=== PATIENT | female | born 1960 | race Caucasian/White ===

== ENCOUNTER → 2020-08-04 08:36 | Outpatient (BNVA) | payer OTHER, SELFPAY | PROVIDERS: PCP Internal Medicine; Visit Provider Physician Assistant | DX: Z76.89 Persons encountering health services in other specified circumstances (principal) ==

== ENCOUNTER 2020-08-20 10:52 | Outpatient (REF) | payer OTHER, SELFPAY ==
--- NOTE | 2020-08-20 11:15 | XR_ITS ---
EXAMINATION: AP BILATERAL KNEE. LEFT KNEE 2 VIEWS. CLINICAL INFORMATION: Unilateral primary osteoarthritis, left knee. COMPARISON: None TECHNIQUE: AP pelvis. Left knee 2 views. FINDINGS: AP pelvis: There is loss of medial and lateral compartment joint space with periarticular spurring left knee. There is a total right knee prosthesis in place in satisfactory alignment. Left knee: There is complete loss of tricompartment joint space left knee with periarticular spurring and mild suprapatellar joint effusion. No loose body seen. No bony erosive changes. The soft tissues are normal. XR/XR knee standing BI IMPRESSION: Degenerative arthritic changes left knee with periapical spurring and moderate suprapatellar joint effusion. No loose body seen. No visible acute fracture or dislocation.
--- NOTE | 2020-08-20 11:15 | XR_ITS ---
EXAMINATION: AP BILATERAL KNEE. LEFT KNEE 2 VIEWS. CLINICAL INFORMATION: Unilateral primary osteoarthritis, left knee. COMPARISON: None TECHNIQUE: AP pelvis. Left knee 2 views. FINDINGS: AP pelvis: There is loss of medial and lateral compartment joint space with periarticular spurring left knee. There is a total right knee prosthesis in place in satisfactory alignment. Left knee: There is complete loss of tricompartment joint space left knee with periarticular spurring and mild suprapatellar joint effusion. No loose body seen. No bony erosive changes. The soft tissues are normal. XR/XR knee LT 2V IMPRESSION: Degenerative arthritic changes left knee with periapical spurring and moderate suprapatellar joint effusion. No loose body seen. No visible acute fracture or dislocation.
== END 2020-08-20 10:53 | disposition home or self-care (01) ==
LOC: HO.XRAY 10:52
PROVIDERS: PCP Internal Medicine; Referring Provider Internal Medicine; Visit Provider Physician Assistant
DX: M17.12 Unilateral primary osteoarthritis, left knee (principal)
CPT/HCPCS: 73560; 73565

== ENCOUNTER 2020-08-24 11:50 | Inpatient (IN) | payer OTHER, SELFPAY ==
[2020-08-11 12:34] VITALS: BP 130/84; PULSE 83; RESP 16; O2SAT 98; BMI 39.9
--- NOTE | 2020-08-11 12:58 | P.CONAN_ITS ---
Documented by User: Mindy Khouryney 08/23/20 08:58 HPI - Anesthesia Eval Consult details Narrative: 60 yo F for Left TKA s/p R TKA 07/2019 with spinal/block, no issues chronic methotrexate/humira for psoriatic arthritis PCP cleared ON LICENSE OF [facility] Past Medical History Medical History Anxiety Hearing difficulty of right ear Hx of meningitis Hyperlipidemia Hypertension Hypothyroidism Osteoarthritis Psoriatic arthritis Sleep apnea Family History Family history of problems with anesthesia: No Surgical History Surgical History History of carpal tunnel repair History of gynecologic surgery History of total right knee replacement (TKR) History of wisdom tooth extraction Hx of colonoscopy Hx of tonsillectomy History of Problems with Anesthesia: No Social History Social History Are you a primary manager of care to a significant other at home: No Do you presently have visiting nurse or other home services: No Smoking Status: Never smoker Second Hand Smoke Exposure: No Use of substances other than those prescribed or required for medical reasons: No Have you been hit, kicked, punched, or otherwise hurt by someone within the past year? If so, by whom?: No Spiritual Healthcare Practices: none Orthodox Healthcare Practices: none Cultural Healthcare Practices: none Advance Directives: No Advance Directives Information Provided: Yes Recently lost weight without trying: No Meds Allergies Allergy/AdvReac Type Severity Reaction Status Date / Time sulfamethoxazole Allergy Unknown DIARRHEA Verified 08/20/20 11:06 [From BACTRIM] trimethoprim [From BACTRIM] Allergy Unknown DIARRHEA Verified 08/20/20 11:06 environmental/hay fever Allergy Unknown itching Uncoded 08/04/20 12:24 Home Medications Medication Instructions Recorded Confirmed Type adalimumab [Humira Pen] 1 syringe SUBCUT Q2W 08/10/20 08/10/20 History diclofenac sodium 75 mg PO DAILY PRN 08/10/20 08/10/20 History folic acid 1 tab PO DAILY 08/10/20 08/10/20 History hydrochlorothiazide 1 tab PO DAILY 08/10/20 08/10/20 History lovastatin 1 tab PO BEDTIME 08/10/20 08/10/20 History methotrexate sodium [Methotrexate 15 mg PO QWEEK 08/10/20 08/10/20 History (Anti-Rheumatic)] multivitamin 1 tab PO DAILY 08/10/20 08/10/20 History levothyroxine 1 tab PO DAILY 08/11/20 08/11/20 History biotin 1 mg capsule 1 mg PO DAILY 08/20/20 History Exam Exam Date and Time: August 11, 2020 1258 Height,Weight and Vital Signs: Height 5 ft 4 in Weight 105.687 kg Last Vital Signs Pulse 83 08/11/20 12:34 Resp 16 08/11/20 12:34 BP 130/84 08/11/20 12:34 Pulse Ox 98 08/11/20 12:34 Pertinent Lab Results Pertinent Lab Results: CBC,LYTES,BUN,CREAT all WNL from outside provider Lab Results 08/11/20 08/20/20 Range/Units 13:15 12:20 Nasal Screen MRSA (PCR) NEGATIVE (Negative) Nasal S. aureus Screen NEGATIVE (Negative) Nasal MRSA/S.aureus Interp SEE NOTE Blood Type A Positive Antibody Screen NEGATIVE EKG 08/10/20: NSR @ 94, ?LAE, no change from 2019 Airway Mallampati Class: II TM Dist: >3cm Neck ROM: Full Loose/Missing/Broken Teeth: No (Crowns throught. None loose or broken.) Heart: RRR Lungs: CTAB Assessment and Plan Assessment Anesthesia Assessment: Anesthesia Plan Discussed and PAT Visit Documented by User: Leonides Burton MD 08/24/20 10:33 ON LICENSE OF [facility] Past Medical History Medical History Anxiety Hearing difficulty of right ear Hx of meningitis Hyperlipidemia Hypertension Hypothyroidism Osteoarthritis Psoriatic arthritis Sleep apnea Surgical History Surgical History History of carpal tunnel repair History of gynecologic surgery History of total right knee replacement (TKR) History of wisdom tooth extraction Hx of colonoscopy Hx of tonsillectomy Social History Social History Are you a primary manager of care to a significant other at home: No Do you presently have visiting nurse or other home services: No Smoking Status: Never smoker Second Hand Smoke Exposure: No Use of substances other than those prescribed or required for medical reasons: No Have you been hit, kicked, punched, or otherwise hurt by someone within the past year? If so, by whom?: No Spiritual Healthcare Practices: none Orthodox Healthcare Practices: none Cultural Healthcare Practices: none Advance Directives: No Advance Directives Information Provided: Yes Recently lost weight without trying: No Meds Allergies Allergy/AdvReac Type Severity Reaction Status Date / Time sulfamethoxazole Allergy Unknown DIARRHEA Verified 08/20/20 11:06 [From BACTRIM] trimethoprim [From BACTRIM] Allergy Unknown DIARRHEA Verified 08/20/20 11:06 environmental/hay fever Allergy Unknown itching Uncoded 08/04/20 12:24 Home Medications Medication Instructions Recorded Confirmed Type adalimumab [Humira Pen] 1 syringe SUBCUT Q2W 08/10/20 08/10/20 History diclofenac sodium 75 mg PO DAILY PRN 08/10/20 08/10/20 History folic acid 1 tab PO DAILY 08/10/20 08/10/20 History hydrochlorothiazide 1 tab PO DAILY 08/10/20 08/10/20 History lovastatin 1 tab PO BEDTIME 08/10/20 08/10/20 History methotrexate sodium [Methotrexate 15 mg PO QWEEK 08/10/20 08/10/20 History (Anti-Rheumatic)] multivitamin 1 tab PO DAILY 08/10/20 08/10/20 History levothyroxine 1 tab PO DAILY 08/11/20 08/11/20 History biotin 1 mg capsule 1 mg PO DAILY 08/20/20 History Assessment and Plan Assessment Anesthesia Assessment: Anesthesia Plan Discussed, PAT Visit and Chart Reviewed Final Anesthetic Review NPO: Yes ASA Class: III Final Preanesthetic Review: No Changes in Pt Med Stat, Meds/Allgs Chart Reviewed, Consent Obtained/Reviewed and Anes Risks/Benef Reviewed Patient Risk: Intermediate Procedure Risk: Intermediate Anesthetic Plan Anesthetic Plan: MAC:, Spinal and Regional Block Disposition: Standard PACU
[2020-08-11 15:44] LABS: MRSA Nasal PCR NEGATIVE (Negative); SA Nasal PCR NEGATIVE (Negative)
[2020-08-24] VITALS (15 sets, daily range): BP systolic 96–158; BP diastolic 59–89; PULSE 18–108; RESP 12–19; TEMP 36.3–37.1; O2SAT 94–99
[2020-08-24] MEDS: Gabapentin 600 MG TABLET PO (08:12)
[2020-08-24] MEDS: ceFAZolin Sodium/Dextrose,Iso 2 GM/50 ML PIGGYBACK IV ×2 (08:13→14:25)
[2020-08-24] MEDS: Lactated Ringers 1,000 ML 100 ML IVCONT (08:39)
[2020-08-24 08:46] LABS: SARS COV2 PCR INHOUSE NEGATIVE (Negative)
--- NOTE | 2020-08-24 09:30 | MHC.SHP ---
Pre-Procedural Eval Section A The patient is an INPATIENT: No Changes since office visit: Yes Patient answered all questions; No Cold of Flu in the past 2 weeks, No New Medical Problems and No Changes in Medication The History & Physical has been completed within 30 days and I have reviewed it.: Yes Section B Chief Complaint: Left Knee Osteoarthritis Allergies: Allergies Allergy/AdvReac Type Severity Reaction Status Date / Time sulfamethoxazole Allergy Unknown DIARRHEA Verified 08/20/20 11:06 [From BACTRIM] trimethoprim [From BACTRIM] Allergy Unknown DIARRHEA Verified 08/20/20 11:06 environmental/hay fever Allergy Unknown itching Uncoded 08/04/20 12:24 Plan Patient has been examined and remains a candidate for the planned procedure
--- NOTE | 2020-08-24 11:24 | PM.OP ---
Brief Operative Note Date of procedure: 08/24/20 Pre-op diagnosis: left knee OA Post-op diagnosis: same Procedure: LEFT TKA Implants: CAS TRIATHALON 12/29/10 Surgeon: Karlos Boyce MD Anesthesia: regional and spinal Senior Sales Assistant: Farshad Dumont Estimated blood loss (mL): 150 IV fluids (mL): 800 Pathology: other Condition: stable Disposition: PACU
--- NOTE | 2020-08-24 12:30 | XR_ITS ---
EXAMINATION: XR KNEE, LEFT CLINICAL INFORMATION: Status post left TKA. COMPARISON: None TECHNIQUE: Two views of the left knee. FINDINGS: There is total left knee arthroplasty with prosthetic components in satisfactory alignment. Immediate postop changes are noted with surgical pushpa along this anterior skin incision and gas and fluid within the joint space. XR/XR knee LT 2V IMPRESSION: Status post total left knee arthroplasty with prosthetic components in satisfactory alignment and immediate postop changes noted.
[2020-08-24] MEDS: Dextrose 5 % and 0.9 % NaCl 1,000 ML 100 ML IVCONT (14:17)
[2020-08-24] MEDS: oxyCODONE HCl Immed Release 5 MG TABLET PO ×2 (14:25→19:09)
--- NOTE | 2020-08-24 16:21 | PM.IMCN ---
History of Present Illness Data of Consult Primary Care Provider: Pasha Lopes MD [facility] Medical History Anxiety Hearing difficulty of right ear Hx of meningitis Hyperlipidemia Hypertension Hypothyroidism Osteoarthritis Psoriatic arthritis Sleep apnea Surgical History History of carpal tunnel repair History of gynecologic surgery History of total right knee replacement (TKR) History of wisdom tooth extraction Hx of colonoscopy Hx of tonsillectomy Social History Are you a primary care provider to a significant other at home: No Do you presently have visiting nurse or other home services: No Smoking Status: Never smoker Second Hand Smoke Exposure: No Use of substances other than those prescribed or required for medical reasons: No Have you been hit, kicked, punched, or otherwise hurt by someone within the past year? If so, by whom?: No Spiritual Healthcare Practices: none Oriental Orthodox Healthcare Practices: none Cultural Healthcare Practices: none Advance Directives: No Advance Directives Information Provided: Yes Recently lost weight without trying: No Meds Allergies Allergy/AdvReac Type Severity Reaction Status Date / Time sulfamethoxazole Allergy Unknown DIARRHEA Verified 08/20/20 11:06 [From BACTRIM] trimethoprim [From BACTRIM] Allergy Unknown DIARRHEA Verified 08/20/20 11:06 environmental/hay fever Allergy Unknown itching Uncoded 08/04/20 12:24 Home Medications Medication Instructions Recorded Confirmed Type adalimumab [Humira Pen] 1 syringe SUBCUT Q2W 08/10/20 08/10/20 History diclofenac sodium 75 mg PO DAILY PRN 08/10/20 08/10/20 History folic acid 1 tab PO DAILY 08/10/20 08/10/20 History hydrochlorothiazide 1 tab PO DAILY 08/10/20 08/10/20 History lovastatin 1 tab PO BEDTIME 08/10/20 08/10/20 History methotrexate sodium [Methotrexate 15 mg PO QWEEK 08/10/20 08/10/20 History (Anti-Rheumatic)] multivitamin 1 tab PO DAILY 08/10/20 08/10/20 History levothyroxine 1 tab PO DAILY 08/11/20 08/11/20 History biotin 1 mg capsule 1 mg PO DAILY 08/20/20 History Physical Exam Vital Signs and Narrative: Vital Signs: Last Vital Signs Temp 98.3 F 08/24/20 15:03 Pulse 84 08/24/20 15:03 Resp 19 08/24/20 15:03 BP 131/59 L 08/24/20 15:03 Pulse Ox 97 08/24/20 15:03 Body Mass Index 39.9 Results Labs Labs: Laboratory Tests 08/11/20 08/20/20 08/24/20 13:15 12:20 07:40 Nasal Screen MRSA (PCR) NEGATIVE Nasal S. aureus Screen NEGATIVE Nasal MRSA/S.aureus Interp SEE NOTE Coronavirus (PCR) NEGATIVE Blood Type A Positive Antibody Screen NEGATIVE
[2020-08-24] MEDS: HYDROmorphone HCl 0.5 MG/0.5 ML SYRINGE 0.25 MG IVPUSH ×2 (16:24→20:46)
[2020-08-24] MEDS: Acetaminophen 325 MG TABLET PO (19:09)
--- NOTE | 2020-08-24 19:54 | P.CONIM_ITS ---
History of Present Illness Data of Consult Service Date: 08/24/20 Requesting physician: Patrick Smith Primary Care Provider: Pasha Lopes MD [facility] Reason for consult: Medical Management 60-year-old woman status post left total knee arthroplasty. Surgery was unremarkable. Patient has been able to eat and drink although she did have a few episodes nausea. She has been able to get up and walk to the bathroom. Her vital signs are stable. She is currently resting in bed. Review of Systems Review of Systems: Denies any recent fever chills or decrease in appetite respiratory denies any shortness of breath coverage production cardiovascular is adjustment of any PND or edema gastrointestinal denies any dysphagia abdominal pain nausea vomiting or diarrhea genitourinary denies any dysuria frequency or hematuria musculoskeletal Left knee pain neuropsych denies any weakness or seizures all other systems reviewed are negative [facility] Medical History Anxiety Hearing difficulty of right ear Hx of meningitis Hyperlipidemia Hypertension Hypothyroidism Osteoarthritis Psoriatic arthritis Sleep apnea Functional capacity: independent ambulation Pertinent family history: no cardiac disease Surgical History History of carpal tunnel repair History of gynecologic surgery History of total right knee replacement (TKR) History of wisdom tooth extraction Hx of colonoscopy Hx of tonsillectomy Social History Are you a primary primary care nurse practitioner to a significant other at home: No Do you presently have visiting nurse or other home services: No Smoking Status: Never smoker Second Hand Smoke Exposure: No Use of substances other than those prescribed or required for medical reasons: No Currently Displaying Signs/Symptoms of Drug Intoxication Withdrawal: No Have you been hit, kicked, punched, or otherwise hurt by someone within the past year? If so, by whom?: No Spiritual Healthcare Practices: none Gnosticist Healthcare Practices: none Cultural Healthcare Practices: none Advance Directives: No Advance Directives Information Provided: Yes Do you have thoughts of harming others: None Do you have a plan to hurt others: No Plan Recently lost weight without trying: No Meds Allergies Allergy/AdvReac Type Severity Reaction Status Date / Time sulfamethoxazole Allergy Unknown DIARRHEA Verified 08/20/20 11:06 [From BACTRIM] trimethoprim [From BACTRIM] Allergy Unknown DIARRHEA Verified 08/20/20 11:06 environmental/hay fever Allergy Unknown itching Uncoded 08/04/20 12:24 Home Medications Medication Instructions Recorded Confirmed Type adalimumab [Humira Pen] 1 syringe SUBCUT Q2W 08/10/20 08/10/20 History diclofenac sodium 75 mg PO DAILY PRN 08/10/20 08/10/20 History folic acid 1 tab PO DAILY 08/10/20 08/10/20 History hydrochlorothiazide 1 tab PO DAILY 08/10/20 08/10/20 History lovastatin 1 tab PO BEDTIME 08/10/20 08/10/20 History methotrexate sodium [Methotrexate 15 mg PO QWEEK 08/10/20 08/10/20 History (Anti-Rheumatic)] multivitamin 1 tab PO DAILY 08/10/20 08/10/20 History levothyroxine 1 tab PO DAILY 08/11/20 08/11/20 History biotin 1 mg capsule 1 mg PO DAILY 08/20/20 History Physical Exam Vital Signs and Narrative: Vital Signs: Last Vital Signs Temp 97.6 F 08/24/20 19:17 Pulse 87 08/24/20 19:17 Resp 19 08/24/20 19:17 BP 158/89 H 08/24/20 19:17 Pulse Ox 97 08/24/20 19:17 Body Mass Index 39.9 Appearing in no acute distress head is normocephalic atraumatic eyes pupils are PERRLA sclera is anicteric mouth throat mucous membranes are intact and moist neck is supple no lymphadenopathy, no JVD noted lung sounds are clear to auscultation heart regular rate rhythm, clear S1, S2 positive bowel sounds, abdomen is soft, nontender neuro patient is alert x3, no focal deficits msk left knee dressing clean dry and intact. Results Labs Labs: Laboratory Tests 08/11/20 08/20/20 08/24/20 13:15 12:20 07:40 Nasal Screen MRSA (PCR) NEGATIVE Nasal S. aureus Screen NEGATIVE Nasal MRSA/S.aureus Interp SEE NOTE Coronavirus (PCR) NEGATIVE Blood Type A Positive Antibody Screen NEGATIVE Assessment and Plan (1) Osteoarthritis of left knee: Status: Acute 60-year-old woman status post left total knee arthroplasty. Left total knee arthroplasty. Management as per surgical team, pain management. Hypertension. Hold hydrochlorothiazide for now as patient is postoperative. Resume her blood pressure goes up. Psoriatic arthritis. Treated with methotrexate on hold for now. Hypothyroidism. Continue levothyroxine. DVT prophylaxis as per surgical team. Case discussed with Dr. Ruy Feldman code
[2020-08-24] MEDS: oxyCODONE HCl ER 10 MG TAB.ER.12H PO (20:46)
[2020-08-25] VITALS (9 sets, daily range): BP systolic 136–186; BP diastolic 71–91; PULSE 71–105; RESP 16–18; TEMP 36.5–37.3; O2SAT 93–98; BMI 39.9
[2020-08-25] MEDS: Dextrose 5 % and 0.9 % NaCl 1,000 ML 100 ML IVCONT ×2 (00:18→19:40)
[2020-08-25] MEDS: Acetaminophen 325 MG TABLET PO ×3 (00:27→13:58)
[2020-08-25] MEDS: oxyCODONE HCl Immed Release 5 MG TABLET PO ×5 (00:27→17:58)
[2020-08-25] MEDS: HYDROmorphone HCl 0.5 MG/0.5 ML SYRINGE 0.25 MG IVPUSH ×2 (02:04→21:18)
[2020-08-25 06:21] LABS: MANUAL DIFF FLAG NO
[2020-08-25 06:32] LABS: Basophils Percent Auto 0.2 % (0-2); Hematocrit 36.1 % (37-47); Hemoglobin 12.1 g/dl (12.0-16.0); Imm Gran Abs Auto 0.05 X10*3/uL (0.00-0.03); Imm Gran Pct Auto 0.5 % (0.0-0.4); Lymphocytes Percent Auto 10.1 % (20-40); Mean Corpuscular HGB Conc 33.5 g/dl (31.0-35.0); Mean Corpuscular Volume 92.6 fL (80-98); Mean Platelet Volume 9.3 fL (9.4-12.3); Monocytes Absolute Auto 0.9 X10*3/uL (0.1-1.2); Monocytes Percent Auto 8.3 % (2-11); Neutrophils Absolute Auto 8.3 X10*3/uL (2.0-8.3); Neutrophils Percent Auto 80.9 % (45-73); Platelet Count 254 X10*3/uL (160-400); Red Cell Distribution Width 13.4 % (11.0-16.0); White Blood Count 10.3 X10*3/uL (4.8-10.8)
[2020-08-25 06:53] LABS: Anion Gap 16 (12-20); Blood Urea Nitrogen 12 mg/dL (9-16); Calcium 7.5 mg/dL (8.4-10.2); Carbon Dioxide 23 mmol/L (22-29); Chloride 98 mmol/L (96-108); Creatinine Clr Calc Pharmacy 103.8; Estimated Glomerular Filt Rate > 60; Glucose Random 131 mg/dL (60-115); Potassium 3.2 mmol/l (3.3-5.1); Sodium 134 mmol/L (135-145)
[2020-08-25] MEDS: Levothyroxine Sodium 125 MCG TABLET PO (08:20)
[2020-08-25] MEDS: oxyCODONE HCl ER 10 MG TAB.ER.12H PO ×2 (08:20→21:18)
[2020-08-25] MEDS: Folic Acid 1 MG TABLET PO (08:20)
--- NOTE | 2020-08-25 09:00 | P.PNIM_ITS ---
Subjective Subjective Date of Service: 08/25/20 Interval History: Seen in follow up for medical consult post op left knee replacement. Review of Systems Gen: no fever Card: no chest pain Muscular/sk: knee pain Physical Exam Vital Signs: Vital Signs: Vital Signs Temp Pulse Resp BP Pulse Ox 08/25/20 07:24 99.0 F 92 18 136/71 97 08/25/20 04:00 98 F 105 H 16 159/81 H 95 08/25/20 02:04 16 08/25/20 00:00 99.1 F 103 H 16 162/91 H 95 08/24/20 20:46 18 08/24/20 19:17 97.6 F 87 19 158/89 H 97 08/24/20 16:00 97.4 F 83 18 147/70 H 94 08/24/20 15:03 98.3 F 84 19 131/59 L 97 08/24/20 14:58 75 115/72 99 08/24/20 13:15 75 16 115/72 99 08/24/20 12:50 80 16 119/70 97 08/24/20 12:24 76 16 113/70 95 08/24/20 12:13 75 16 106/66 97 08/24/20 11:58 98.8 F 79 16 109/62 99 08/24/20 11:44 92 16 100/64 95 08/24/20 11:39 100 16 100/61 96 08/24/20 11:34 104 H 16 103/67 96 08/24/20 11:29 987 F H 108 H 12 96/63 98 Body Mass Index 39.9 Constitutional Awake and Alert, No apparent distress Neck Supple, No lymphadenopathy Cardiovascular RRR, No M/R/G, S1 S2, No S3 S4, No pedal edema Respiratory Lungs clear, No respiratory distress Gastrointestinal Non tender, Non-distended Skin knee dressing dry/clean/intact Neurological Alert & oriented x3 Psychological Appropriate affect Objective Data Current Medications Generic Name Dose Route Start Last Admin Trade Name Freq PRN Reason Stop Dose Admin Acetaminophen 325 mg 08/24/20 13:46 08/25/20 06:07 Acetaminophen 325 Mg Tablet PO 325 mg Q4H PRN Administration Pain, Mild (Pain Scale 1-3) Enoxaparin Sodium 40 mg 08/25/20 10:00 Enoxaparin Sodium 40 Mg/0.4 Ml Syringe SUBCUT Q24H MARTHA Folic Acid 1 mg 08/25/20 09:00 08/25/20 08:20 Folic Acid 1 Mg Tablet PO 1 mg DAILY MARTHA Administration Hydromorphone HCl 0.25 mg 08/24/20 13:46 08/25/20 02:04 Hydromorphone Hcl 0.5 Mg/0.5 Ml Syringe IVPUSH 0.25 mg Q4H PRN Administration Pain, Severe (Pain Scale 7-10) Dextrose/Sodium Chloride 1,000 mls @ 100 mls/hr 08/24/20 13:46 08/25/20 00:18 D5ns IVCONT 100 mls/hr .Q10H MARTHA Administration Levothyroxine Sodium 125 mcg 08/25/20 09:00 08/25/20 08:20 Levothyroxine Sodium 125 Mcg Tablet PO 125 mcg DAILY MARTHA Administration Oxycodone HCl 10 mg 08/24/20 21:00 08/25/20 08:20 Oxycodone Hcl Er 10 Mg Tab.Er.12h PO 10 mg BID MARTHA Administration Oxycodone HCl 5 mg 08/24/20 13:46 08/25/20 06:08 Oxycodone Hcl Immed Release 5 Mg Tablet PO 5 mg Q4H PRN Administration Pain, Moderate (Pain Scale 4-6 Senna 17.2 mg 08/24/20 21:00 08/24/20 20:47 Sennosides 8.6 Mg Tablet PO Not Given BEDTIME [facility] Sodium Chloride 3 ml 08/24/20 16:00 08/25/20 07:33 0.9 % Sodium Chloride Flush 3 Ml Syringe IVFLUSH Not Given QSHIFT [facility] Labs CBC & Chem 7: 08/25/20 06:04 08/25/20 06:04 Assessment and Plan (1) Hypothyroidism: Status: Acute (2) Hyperlipidemia: Status: Acute (3) Hypertension: Status: Acute (4) Osteoarthritis of left knee: Status: Acute Assessment and Plan: 60/F with HTN, hypothyroidism, Psoriatic arthitis s/p elective Left TKR POD1 Left total knee arthroplasty. Management per surgery Hypertension. Controlled. -continue HCTZ Psoriatic arthritis. Resume MTX upon discharge Hypothyroidism. Continue levothyroxine. DVT prophylaxis as per surgical team.
[2020-08-25] MEDS: Aspirin 325 MG TABLET PO ×2 (09:58→21:17)
--- NOTE | 2020-08-25 10:40 | PM.PNORT ---
Subjective Subjective Interval history: POD 1 s/p LT TKA No overnight events, resting in bed, tolerating pain well. Denies SOB, CP, dizziness Physical Exam Vital Signs: Vital Signs: Vital Signs Temp Pulse Resp BP Pulse Ox 08/25/20 09:09 92 136/71 97 08/25/20 07:24 99.0 F 92 18 136/71 97 08/25/20 04:00 98 F 105 H 16 159/81 H 95 08/25/20 02:04 16 08/25/20 00:00 99.1 F 103 H 16 162/91 H 95 08/24/20 20:46 18 08/24/20 19:17 97.6 F 87 19 158/89 H 97 08/24/20 16:00 97.4 F 83 18 147/70 H 94 08/24/20 15:03 98.3 F 84 19 131/59 L 97 08/24/20 14:58 75 115/72 99 08/24/20 13:15 75 16 115/72 99 08/24/20 12:50 80 16 119/70 97 08/24/20 12:24 76 16 113/70 95 08/24/20 12:13 75 16 106/66 97 08/24/20 11:58 98.8 F 79 16 109/62 99 08/24/20 11:44 92 16 100/64 95 08/24/20 11:39 100 16 100/61 96 08/24/20 11:34 104 H 16 103/67 96 08/24/20 11:29 987 F H 108 H 12 96/63 98 Body Mass Index 39.9 Const: General: cooperative, healthy appearing and no acute distress Resp: Effort & Inspection: normal respiratory effort and able to speak in complete sentences Cardio: Rate: regular rate Peripheral pulses: Peripheral pulses 2+ throughout GI: Inspection: Yes normal to inspection Palpation (GI): Soft to palpation Skin: General skin exam: no rashes or lesions noted Extrem: Other: Left knee bandage intact, no drainage. No erythema, mild swelling. ROM 0-90 Progress Note: A&P Assessment and plan (1) Status post total left knee replacement: Status: Acute Assessment and Plan: Continue pain mgmnt Begin asa for dvt ppx begin PT for LT TKA Dispo planning-Pending PT eval, pain mgmnt Fall Risk Details Current Medications: Current Medications Generic Name Dose Route Start Last Admin Trade Name Freq PRN Reason Stop Dose Admin Acetaminophen 325 mg 08/24/20 13:46 08/25/20 06:07 Acetaminophen 325 Mg Tablet PO 325 mg Q4H PRN Administration Pain, Mild (Pain Scale 1-3) Aspirin 325 mg 08/25/20 10:00 08/25/20 09:58 Aspirin 325 Mg Tablet PO 325 mg BID MARTHA Administration Folic Acid 1 mg 08/25/20 09:00 08/25/20 08:20 Folic Acid 1 Mg Tablet PO 1 mg DAILY MARTHA Administration Hydromorphone HCl 0.25 mg 08/24/20 13:46 08/25/20 02:04 Hydromorphone Hcl 0.5 Mg/0.5 Ml Syringe IVPUSH 0.25 mg Q4H PRN Administration Pain, Severe (Pain Scale 7-10) Dextrose/Sodium Chloride 1,000 mls @ 100 mls/hr 08/24/20 13:46 08/25/20 00:18 D5ns IVCONT 100 mls/hr .Q10H MARTHA Administration Levothyroxine Sodium 125 mcg 08/25/20 09:00 08/25/20 08:20 Levothyroxine Sodium 125 Mcg Tablet PO 125 mcg DAILY MARTHA Administration Oxycodone HCl 10 mg 08/24/20 21:00 08/25/20 08:20 Oxycodone Hcl Er 10 Mg Tab.Er.12h PO 10 mg BID MARTHA Administration Oxycodone HCl 5 mg 08/24/20 13:46 08/25/20 09:58 Oxycodone Hcl Immed Release 5 Mg Tablet PO 5 mg Q4H PRN Administration Pain, Moderate (Pain Scale 4-6 Senna 17.2 mg 08/24/20 21:00 08/24/20 20:47 Sennosides 8.6 Mg Tablet PO Not Given BEDTIME MARTHA Sodium Chloride 3 ml 08/24/20 16:00 08/25/20 07:33 0.9 % Sodium Chloride Flush 3 Ml Syringe IVFLUSH Not Given QSHIFT MARTHA Time Spent With Patient Time: Total time spent is greater than 50% in coordination of care (as documented) at patient's floor/unit and/or counseling patient: Time with patient: 15 - 24 minutes
--- NOTE | 2020-08-25 11:08 | PM.CCPN ---
Physical Exam Vital Signs: Vital Signs: Vital Signs Temp Pulse Resp BP Pulse Ox 08/25/20 09:09 92 136/71 97 08/25/20 07:24 99.0 F 92 18 136/71 97 08/25/20 04:00 98 F 105 H 16 159/81 H 95 08/25/20 02:04 16 08/25/20 00:00 99.1 F 103 H 16 162/91 H 95 08/24/20 20:46 18 08/24/20 19:17 97.6 F 87 19 158/89 H 97 08/24/20 16:00 97.4 F 83 18 147/70 H 94 08/24/20 15:03 98.3 F 84 19 131/59 L 97 08/24/20 14:58 75 115/72 99 08/24/20 13:15 75 16 115/72 99 08/24/20 12:50 80 16 119/70 97 08/24/20 12:24 76 16 113/70 95 08/24/20 12:13 75 16 106/66 97 08/24/20 11:58 98.8 F 79 16 109/62 99 08/24/20 11:44 92 16 100/64 95 08/24/20 11:39 100 16 100/61 96 08/24/20 11:34 104 H 16 103/67 96 08/24/20 11:29 987 F H 108 H 12 96/63 98 Body Mass Index 39.9 Objective Data Labs CBC & Chem 7: 08/25/20 06:04 08/25/20 06:04 Labs: Laboratory Results - last 24 hr 08/25/20 08/25/20 06:04 06:04 WBC 10.3 RBC 3.90 L Hgb 12.1 Hct 36.1 L MCV 92.6 MCH 31.0 MCHC 33.5 RDW 13.4 Plt Count 254 MPV 9.3 L Immature Gran % (Auto) 0.5 H Neut % (Auto) 80.9 H Lymph % (Auto) 10.1 L [place] % (Auto) 8.3 Eos % (Auto) 0.0 Baso % (Auto) 0.2 Lymph # (Auto) 1.0 L [place] # (Auto) 0.9 Eos # (Auto) 0.0 Baso # (Auto) 0.0 Abs Immat Gran (auto) 0.05 H Absolute Neuts (auto) 8.3 Absolute Nucleated RBC 0.000 Nucleated RBC % (auto) 0.0 Sodium 134 L Potassium 3.2 L Chloride 98 Carbon Dioxide 23 Anion Gap 16 BUN 12 Creatinine 0.70 Estim Creat Clear Calc 103.8 Estimated GFR > 60 Random Glucose 131 H Calcium 7.5 L Progress Note: A&P Time Spent With Patient Time: Total time spent is greater than 50% in coordination of care (as documented) at patient's floor/unit and/or counseling patient:
--- NOTE | 2020-08-25 11:43 | MHC.CM.NN ---
NURSE ASTRONAUTICAL ENGINEER NOTE ELECTRIONIC MEDICAL RECORD RECVIEWED ALONG WITH CASE DISCUSSED WITH STAFF SADIE , MET WITH PATIENT EXPLAINED THE ROLE OF THE NURSE ASTRONAUTICAL ENGINEER IN THE TRANSITION FROM THE [facility] TO HOME . EDUCATED ABOUT HEALTH CARE PROXY , SAYS HER AGEBNT IS HER . SHE IS INDEPENDENT , ACTIVE , USES A WALKER , LIVES ON THE FIRST FLOOR LAUNDRY ON THE SECOND FLOOR , PPATIENT REPRTS THAT SHE HAD HER OTHER KNEE REOPLACED HERE AT THIS HOSPITAL ABOUT 1 YEAR AGO, AT THAT TIME WHEN SHE WENT HOME SHE HAD THE [facility] FOR HOME PHYSICVAL THEAPRY AND ASKED IF I COULD ASK FOR THE SAME P.T. WORKER SHE HAD BEFORE . SHE HAS SLEEP APNEA AND USES A CPAPA AT , PATIENT DOES NOT HAVE ANY VNA XCURRENTLY,. DISCHARGE PLAN HOME WITH [facility] PCP LILLY Trujillo[ATIENT TO CALL FOR POST HOSPITAL DISCHARGE FOLLOW UP ORTHOPEDIC SURGCIAL FOLLOW UP PER DISCHARGE INSTRUCTIONS TRANSPORTATION FAMILY
--- NOTE | 2020-08-25 13:56 | HO.POSTANES ---
Post Anesthesia Evaluation Post Anesthesia Evaluation Vital Signs: Vital Signs Temp Pulse Resp BP Pulse Ox 08/25/20 11:37 98.6 F 97 17 156/88 H 98 08/25/20 09:09 92 136/71 97 08/25/20 07:24 99.0 F 92 18 136/71 97 08/25/20 04:00 98 F 105 H 16 159/81 H 95 08/25/20 02:04 16 Anesthesia: Spinal Mental Status: Awake Pain Control: Satisfactory Nausea/Vomiting: None Hydration: Adequate Anesthesia-Related Issues: No Anes. Related Issues
[2020-08-25] MEDS: 0.9 % Sodium Chloride Flush 3 ML SYRINGE IVFLUSH (21:18)
[2020-08-26] VITALS: BP 148/75; PULSE 115; RESP 18; TEMP 36.1; O2SAT 94
[2020-08-26 03:41] VITALS: BP 140/70; PULSE 100; RESP 17; TEMP 36.8; O2SAT 94
[2020-08-26] MEDS: oxyCODONE HCl Immed Release 5 MG TABLET PO (04:02)
[2020-08-26] MEDS: Acetaminophen 325 MG TABLET PO (04:02)
[2020-08-26] MEDS: Dextrose 5 % and 0.9 % NaCl 1,000 ML 100 ML IVCONT (06:15)
[2020-08-26 06:39] LABS: MANUAL DIFF FLAG NO
[2020-08-26 06:49] LABS: Basophils Percent Auto 0.3 % (0-2); Eosinophils Percent Auto 0.3 % (0-4); Hematocrit 31.4 % (37-47); Hemoglobin 10.7 g/dl (12.0-16.0); Imm Gran Abs Auto 0.06 X10*3/uL (0.00-0.03); Imm Gran Pct Auto 0.6 % (0.0-0.4); Lymphocytes Absolute Auto 0.9 X10*3/uL (1.2-4.9); Lymphocytes Percent Auto 8.7 % (20-40); Mean Corpuscular HGB Conc 34.1 g/dl (31.0-35.0); Mean Corpuscular Hemoglobin 31.4 pg (27.0-33.0); Mean Corpuscular Volume 92.1 fL (80-98); Mean Platelet Volume 9.5 fL (9.4-12.3); Monocytes Absolute Auto 0.9 X10*3/uL (0.1-1.2); Monocytes Percent Auto 8.5 % (2-11); Neutrophils Absolute Auto 8.7 X10*3/uL (2.0-8.3); Neutrophils Percent Auto 81.6 % (45-73); Platelet Count 240 X10*3/uL (160-400); Red Blood Count 3.41 X10*6/uL (4.20-5.50); Red Cell Distribution Width 13.5 % (11.0-16.0); White Blood Count 10.6 X10*3/uL (4.8-10.8)
[2020-08-26 07:19] LABS: Anion Gap 16 (12-20); Blood Urea Nitrogen 10 mg/dL (9-16); Calcium 7.5 mg/dL (8.4-10.2); Carbon Dioxide 24 mmol/L (22-29); Chloride 102 mmol/L (96-108); Creatinine Clr Calc Pharmacy 121.1; Estimated Glomerular Filt Rate > 60; Glucose Random 137 mg/dL (60-115); Potassium 3.5 mmol/l (3.3-5.1); Sodium 138 mmol/L (135-145)
[2020-08-26 07:55] VITALS: BP 138/78; PULSE 108; RESP 18; TEMP 36.7; O2SAT 96
[2020-08-26] MEDS: Aspirin 325 MG TABLET PO (08:19)
[2020-08-26] MEDS: Levothyroxine Sodium 125 MCG TABLET PO (08:20)
[2020-08-26] MEDS: Folic Acid 1 MG TABLET PO (08:20)
[2020-08-26] MEDS: oxyCODONE HCl ER 10 MG TAB.ER.12H PO (08:20)
--- NOTE | 2020-08-26 09:07 | P.DS_ITS ---
DS: Providers Provider Date of admission: 08/24/20 11:50 Primary care physician: Pasha Lopes MD Consults: 08/24/20 13:46 Consult to Hospitalist Routine Consulting Provider: Hospitalist Reason for consultation: medical management DS: Diagnosis Discharge Diagnosis (1) Status post total left knee replacement: Status: Acute Problem details: Ms. Darden is a 60-year-old female who presented to our office with ongoing left knee pain. She was found to have osteoarthritis of the left knee and failed all conservative measures. She continued to have difficulty with ambulation and daily activities therefore she consented to move forward with left total knee arthroplasty. DS: Summary Hospital Course Hospital Course: Ms. Darden underwent a successful left total knee arthroplasty she was transferred to PACU and then to the floor where she recovered during her stay her vitals were stable afebrile at 98.1. H&H unremarkable hemoglobin 10.7 hematocrit 31.4. Postop day 1 she was started on aspirin 325 mg p.o. b.i.d. for DVT prophylaxis and she received physical therapy services twice a day. Prior to discharge her Aquacel dressing was changed, incision clean dry and intact and a new Aquacel dressing was applied. Plan is to be discharged home with VNA services. Time Spent with Patient Time attestation: Total time spent providing and/or coordinating discharge services: Physical Exam Vital Signs: Vital Signs: Vital Signs Temp Pulse Resp BP Pulse Ox 08/26/20 07:55 98.1 F 108 H 18 138/78 96 08/26/20 03:41 98.2 F 100 17 140/70 H 94 08/26/20 00:00 96.9 F 115 H 18 148/75 H 94 08/25/20 21:18 18 08/25/20 20:00 97.7 F 105 H 18 186/79 H 93 08/25/20 16:47 97.7 F 71 16 162/78 H 94 08/25/20 11:37 98.6 F 97 17 156/88 H 98 08/25/20 09:09 92 136/71 97 Body Mass Index 39.9 Const: General: cooperative, healthy appearing and no acute distress Resp: Effort & Inspection: normal respiratory effort and able to speak in complete sentences Cardio: Rate: regular rate Peripheral pulses: Peripheral pulses 2+ throughout GI: Inspection: Yes normal to inspection Palpation (GI): Soft to palpation Skin: General skin exam: no rashes or lesions noted Extrem: Other: Left knee incision clean dry and intact. No erythema or drainage. Range of motion 0-90 degrees. Calf supple nontender. DS: Data Data Completed and Pending Pending studies at discharge: Pending at discharge 08/24/20 10:58 Surgical [PTH] Routine Labs on day of discharge: Labs from last 24 hours 08/26/20 08/26/20 06:18 06:18 WBC 10.6 RBC 3.41 L Hgb 10.7 L Hct 31.4 L MCV 92.1 MCH 31.4 MCHC 34.1 RDW 13.5 Plt Count 240 MPV 9.5 Immature Gran % (Auto) 0.6 H Neut % (Auto) 81.6 H Lymph % (Auto) 8.[address] [place] % (Auto) 8.5 Eos % (Auto) 0.3 Baso % (Auto) 0.3 Lymph # (Auto) 0.[address] [place] # (Auto) 0.9 Eos # (Auto) 0.0 Baso # (Auto) 0.0 Abs Immat Gran (auto) 0.06 H Absolute Neuts (auto) 8.7 H Absolute Nucleated RBC 0.000 Nucleated RBC % (auto) 0.0 Sodium 138 Potassium 3.5 Chloride 102 Carbon Dioxide 24 Anion Gap 16 BUN 10 Creatinine 0.60 Estim Creat Clear Calc 121.1 Estimated GFR > 60 Random Glucose 137 H Calcium 7.5 L Discharge Plan Discharge Patient Disposition: Home Health Service Referrals: [facility]GUY[facility] FOR HOME PHYSICAL THEARPY [Other] (TO BE DISCHARGED [facility]) Farshad Dumont PA-C [Physician Vocational Rehabilitation Specialist] - (Follow up in 2 weeks) Discharge Medications: New sennosides [Senna Lax] 8.6 mg Tablet 17.2 mg PO BEDTIME 30 Days Qty: 60 RF: 0 acetaminophen 325 mg Tablet 325 mg PO Q4H PRN (Reason: Pain, Mild (Pain Scale 1-3)) 30 Days Qty: 240 RF: 0 aspirin 325 mg Tablet 325 mg PO BID 30 Days Qty: 60 RF: 0 oxycodone 5 mg Tablet 5 mg PO Q4H PRN (Reason: Pain, Moderate (Pain Scale 4-6) 7 Days Qty: 42 RF: 0 Continued multivitamin Tablet 1 tab PO DAILY RF: 0 lovastatin 40 mg tablet 1 tab PO BEDTIME RF: 0 folic acid 1 mg tablet 1 tab PO DAILY RF: 0 hydrochlorothiazide 25 mg tablet 1 tab PO DAILY RF: 0 levothyroxine 125 mcg tablet 1 tab PO DAILY RF: 0 Held methotrexate sodium 2.5 mg Tablet 15 mg PO QWEEK RF: 0 Hold Instructions: Resume on 09/16/20. Hold until seen at postop appointment diclofenac sodium 75 mg Tablet,Delayed Release (Dr/Ec) 75 mg PO DAILY PRN (Reason: Pain) RF: 0 Hold Instructions: Resume on 09/09/20. Hold until seen a postop appointment Humira Pen 40 mg/0.8 mL pen injector kit 1 syringe subcut Q2W RF: 0 Hold Instructions: Resume on 09/16/20. Hold until seen at postop appointment Discharge Orders: Discharge Order (Routine); Ordered 08/26/20 Ordered By: Farshad Dumont Diet: regular diet Activity on Discharge: Use cane or walker Activity Restrictions/Additional Instructions: * Physical Therapy for ROM 0-120, quad strength, gait training . Use walker for ambulation * Limit stair climbing, No shower, No tub bath, No driving * Continue anticoagulant * Keep Aquacel dressing clean, dry and intact. * Follow up with orthopedics in 2 weeks Visit Report Forms: Patient Portal Discharge page Care Plan Goals: Restore function of left knee Health Concerns: None Plan of Treatment: Physical Therapy Pain management DVT prophylaxis
[2020-08-26 09:55] VITALS: BP 138/78; PULSE 108; O2SAT 96
--- NOTE | 2020-08-26 10:13 | W.MHC.F2F ---
Service Date Service Date: 08/26/20 Reasons for Services overseeing care: Karlos Boyce MD Homebound: Leaving the home is medically contraindicated at this time without the asist of a device and/or another person due th the listed conditions above and below. Certification: Based on the above findings, I certify that this patient is confined to the home and needs intermittent halfway care, physical therapy and/or speech therapy, or continues to need occupational therapy. The patient is under my care, and I have initiated the establishment of the plan of care. The patient will be followed by a physician who will periodically review the plan of care.
--- NOTE | 2020-08-27 15:37 | OP_ITS ---
SURGEON: Karlos Boyce MD INDICATIONS: This is a 60-year-old with severe osteoarthritis of the left knee, consented to undergo left knee arthroplasty. PREOPERATIVE DIAGNOSIS: Left knee arthritis. POSTOPERATIVE DIAGNOSIS: Left knee arthritis. PROCEDURE PERFORMED: Left total knee arthroplasty. ESTIMATED BLOOD LOSS: 150 mL. COMPLICATIONS: None. ANESTHESIA: ASSISTANTS: SPECIMENS: FLUIDS: 800. PROCEDURE IN DETAIL: The patient was brought to the operating room, placed supine on the operative table and prepped and draped in standard sterile fashion. Time-out was called to identify proper site, proper procedure, proper surgeon. IV antibiotics per weight were administered. I began by making a standard midline incision down the retinaculum and performed a medial parapatellar arthrotomy. I then examined the knee. She had severe eburnation of all compartments. I resected the fat pad and retracted the patella and used Culebra's line to drill my intramedullary femoral guide. I then made my distal femoral cut in 5 degrees of valgus. I then sized a size 3 femur and made my anterior and posterior chamfer cuts, making sure to protect the soft tissue in the anterior femoral cortex at all times. Once this was done, I then turned my attention to the tibia, where I took 2 mm off the medial side in line with the tibial crest in the third ray. The menisci were removed and posterior soft tissues were protected all times. I then trialed an extension block and was happy with the amount of bony resection. A 3 tibia was then trialed with a provisional femur and I was happy with the range of motion and stability of the knee. Therefore, the undersurface of the patella was resurfaced and a 29 asymmetric patella was chosen. Once this was done, I again took the knee through range of motion and I was happy with the tracking. Therefore, all instrumentations were removed and I malleted the femur and tibia in standard fashion and the patella. Once this was done, I returned to the liner and trialed a 9 and an 11 and was happiest with the 11. This was placed and I then irrigated copiously with iodine and local TXA. Layered closure was performed with pushpa on the skin. The patient was then placed in sterile dressing, extubated, brought to recovery room in stable condition. There were no known complications. WALL COVERING INSTALLER: ALEE Mcwilliams. GRAFT OR IMPLANTS: Implants used, [employer] Sullivan 12/29/10. MD AUGUSTINA Escobar/MODESTO / [id number]
== END 2020-08-26 12:15 | disposition home health service (06) | DRG 470 ==
LOC: HO.S3 12:22
PROVIDERS: Nurse Practitioner; Physician Assistant; Admitting Provider Internal Medicine; PCP Internal Medicine; Visit Provider Orthopaedic Surgery
PROC: 0SRD0JA Replacement of Left Knee Joint with Synthetic Substitute, Uncemented, Open Approach (ICD-10-PCS; CPT 27447; principal; 2020-08-24 09:50)
DX: M17.12 Unilateral primary osteoarthritis, left knee (principal); E03.9 Hypothyroidism, unspecified; E78.5 Hyperlipidemia, unspecified; G47.30 Sleep apnea, unspecified; I10 Essential (primary) hypertension; Z20.828 Contact with and (suspected) exposure to other viral communicable diseases; L40.50 Arthropathic psoriasis, unspecified; Z88.2 Allergy status to sulfonamides; Z79.4 Long term (current) use of insulin; Z79.890 Hormone replacement therapy; Z79.899 Other long term (current) drug therapy
CPT/HCPCS: 36415; 73560; 80048; 85025; 86850; 86900; 86901; 87635; 87640; 87641; 88304; 88311; 97110; 97116; 97162; 97530; C1776; J0690; J1170; J2250

== ENCOUNTER → 2020-09-09 10:24 | Outpatient (BNVA) | payer OTHER, SELFPAY | PROVIDERS: Visit Provider Physician Assistant | DX: Z76.89 Persons encountering health services in other specified circumstances (principal) ==

== ENCOUNTER → 2020-10-07 11:00 | Outpatient (BNVA) | payer OTHER, SELFPAY | PROVIDERS: PCP Internal Medicine; Referring Provider Internal Medicine; Visit Provider Orthopaedic Surgery | DX: Z76.89 Persons encountering health services in other specified circumstances (principal) ==

== ENCOUNTER 2020-11-03 10:00 | Outpatient (RCR) | payer OTHER, SELFPAY ==
--- NOTE | 2020-09-13 11:22 | MHC.PT.EP ---
[facility] [place] Office [place] Office [place] Office [address] Lien Olmedo [address] [phone] F: [phone] F: [phone] F: [phone] F: [phone] Physical Therapy Plan of Care Date of Evaluation: 09/13/20 Date of Surgery: 08/24/20 Diagnosis: L TKA Assessment: 60 y/o F s/p L TKA 08/24/2020. She was in the hospital for 2 days post-op and then had home PT for 7 visits. Pain and difficulty with straightening and bending her knee, ascend/descending stairs, walking > 15min, and rolling in bed. She ambulates with a single point cane, except in the house when she does not use any AD. Examination shows decreased L knee AROM 0-10-85 (0-6-95), decreased L knee strength, increased swelling L knee, and impaired gait pattern. Recommend PT 3x/week for 2 weeks then 2x/week for 3 weeks to address impairments, implement HEP, and optimize functional mobility. Frequency and Duration: The patient will be seen 3x/week for 2 weeks then 2x/week for 3 more weeks Short Term Goals: 3 weeks: 1. I with HEP 2. Demonstrate L knee AROM 0-115 3. Demonstrate L SLR without quad lag Systems Technician Goals: 5 weeks: 1. I with HEP and self management of sx 2. Will ascend/descend stairs in step through pattern and one rail 3. Will ambulate with LRAD > 45min (IR 15min) Treatment Plan: Modalities to reduce pain, spasms and effusion. Manual therapy to restore motion and function. Therapeutic exercise to improve strength and flexibility. Neuromuscular re-education for posture and balance. Therapeutic activities to return to functional activities of daily living. Please sign and return to therapist. Thank you for your referral.
--- NOTE | 2020-11-08 08:34 | MHC.PT.DC ---
[facility] [place] Office [place] Office [place] Office [address] Lien Olmedo [address] [phone] F: [phone] F: [phone] F: [phone] F: [phone] Physical Therapy Discharge Report Diagnosis: L TKA Date of Surgery: 08/24/20 Date of Evaluation: 09/13/20 Date of Discharge: 11/08/20 Treatments to Date: 18 Cancellations to Date: 0 No Shows to Date: 0 Discharge Status: Achieved Goals Improved Function Independent with HEP Discharge Summary: Pt appropriate for d/c secondary to meeting goals, improved functional mobility, ascending/descending stairs in step through pattern with rail, and I with HEP. No further questions at this time. Electronically signed by: Chula Hernandez PT DPT Please sign and return to therapist. Thank you for your referral.
== END 2020-11-08 08:35 | disposition other institution (70) ==
LOC: HO.PTCHIC 10:00
PROVIDERS: PCP Internal Medicine; Visit Provider Physician Assistant
DX: Z47.1 Aftercare following joint replacement surgery (principal); Z96.652 Presence of left artificial knee joint
CPT/HCPCS: 97110; 97112; 97140; 97161; 97530

== ENCOUNTER 2020-11-18 08:53 | Outpatient (REF) | payer OTHER, SELFPAY ==
--- NOTE | 2020-11-18 10:01 | XR_ITS ---
EXAMINATION: XR KNEE STANDING, BILATERAL XR KNEE, LEFT CLINICAL INFORMATION: Pain. COMPARISON: Most recent left knee radiographs dated 08/24/2020. TECHNIQUE: AP standing view of the right and left knee. Lateral and sunrise views of the left knee. FINDINGS: Total left knee arthroplasty without acute hardware or osseous fracture. No perihardware lucency to suggest loosening or infection. Trace joint effusion. No abnormal soft tissue calcification. Partial visualization of a total right knee arthroplasty without perihardware lucency to suggest loosening or infection. XR/XR knee standing BI IMPRESSION: Total left knee arthroplasty without evidence of complication. Partial visualization of a total right knee arthroplasty without evidence of complication.
--- NOTE | 2020-11-18 10:01 | XR_ITS ---
EXAMINATION: XR KNEE STANDING, BILATERAL XR KNEE, LEFT CLINICAL INFORMATION: Pain. COMPARISON: Most recent left knee radiographs dated 08/24/2020. TECHNIQUE: AP standing view of the right and left knee. Lateral and sunrise views of the left knee. FINDINGS: Total left knee arthroplasty without acute hardware or osseous fracture. No perihardware lucency to suggest loosening or infection. Trace joint effusion. No abnormal soft tissue calcification. Partial visualization of a total right knee arthroplasty without perihardware lucency to suggest loosening or infection. XR/XR knee LT 2V IMPRESSION: Total left knee arthroplasty without evidence of complication. Partial visualization of a total right knee arthroplasty without evidence of complication.
== END 2020-11-18 08:54 | disposition home or self-care (01) ==
LOC: HO.HOSX 08:53
PROVIDERS: Visit Provider Orthopaedic Surgery
DX: Z47.1 Aftercare following joint replacement surgery (principal); S76.319A Strain of muscle, fascia and tendon of the posterior muscle group at thigh level, unspecified thigh, initial encounter; Z96.653 Presence of artificial knee joint, bilateral
CPT/HCPCS: 73560; 73565

== ENCOUNTER → 2021-12-29 10:27 | Outpatient (BNVA) | payer OTHER, SELFPAY | PROVIDERS: PCP Internal Medicine; Visit Provider Orthopaedic Surgery ==

== ENCOUNTER 2023-08-14 15:20 | Outpatient (REF) | payer OTHER, SELFPAY | END 2023-08-14 15:21 | disposition home or self-care (01) | LOC: HO.SH 15:20 | PROVIDERS: Visit Provider Internal Medicine | DX: Z01.118 Encounter for examination of ears and hearing with other abnormal findings (principal); H90.3 Sensorineural hearing loss, bilateral | CPT/HCPCS: 92557; 92567 ==

== ENCOUNTER 2023-09-06 11:23 | Outpatient (AMB) | payer OTHER, SELFPAY ==
--- NOTE | 2023-09-06 11:25 | A.OFFVIS_ITS ---
Intake Intake Visit Reasons: OV - RT TKA 07/2019 - increasing discomfort Intake Note: Mayte is a 61 year old female who presents today for a follow up of both of her knees. History of bilateral knee replacements: LT TKA 08/24/2020, RT TKA 08/20/2019. Patient reports that she is having some increased stiffness of the knee and she wants to make sure that everything is in place as she feels that the knee feels like it twists. She has continued swelling of the right lower leg. Allergies sulfamethoxazole [From BACTRIM] Allergy (Unknown, Verified 12/29/21 10:49) DIARRHEA trimethoprim [From BACTRIM] Allergy (Unknown, Verified 12/29/21 10:49) DIARRHEA environmental/hay fever Allergy (Unknown, Uncoded 08/04/20 12:24) itching HPI OV - RT TKA 07/2019 - increasing discomfort HPI Details Mayte is a 63 year old woman who presents with complaints of right knee pain She has a hx of bilateral TKA, Right in 08/20/19 and Left on 08/24/20. She complains of increasing stiffness in her right knee, worse with activity. She also feels some discomfort, and feels like her knee twists at times. She wants to make sure everything is still in place . She also complains of increasing swelling in her right calf & foot. [facility] Medical History Osteoarthritis of left knee Hearing difficulty of right ear Hx of meningitis Psoriatic arthritis Osteoarthritis Hypothyroidism Anxiety Sleep apnea Hyperlipidemia Hypertension Surgical History (Updated 09/06/23 @ 11:31 by Ricky Fontenot) History of wisdom tooth extraction History of gynecologic surgery Hx of colonoscopy Hx of tonsillectomy History of carpal tunnel repair History of total right knee replacement (TKR) Social History Are you a primary landcare facilitator to a significant other at home: No Do you presently have visiting nurse or other home services: No Second Hand Smoke Exposure: No service: No Current occupational status: employed and retired Current occupation: medical leave-right handed Review of Systems Const All systems reviewed & are unremarkable except as noted in HPI and below Physical Exam Const General: no acute distress, alert and awake Orientation/consciousness: patient oriented x3 HEENT Head: Yes normocephalic and Yes atraumatic Eyes EOM: EOMs intact bilaterally Resp Effort & Inspection: normal respiratory effort and able to speak in complete sentences Cardio Jugular venous distension: no JVD Skin General skin exam: turgor normal Rashes: no rashes Neuro General: patient oriented x3 Extrem Other: Right Knee: 0-120 stable arc inc c/d/i no ttp nl gait Psych Appearance: grossly normal Affect: normal affect Attitude: cooperative Results Reviewed Results Reviewed: I personally reviewed relevant radiographs Bilateral total knee arthroplasty in expected post operative position with no hardware complications or evidence of loosening Assessment & Plan Assessment & Plan (1) History of total right knee replacement (TKR): Comment: 08/20/19 Code(s): Z96.651 - Presence of right artificial knee joint Plan: This is a 63 year old woman with a hx of right TKA, DOS: 08/20/19. She has some discomfort and stiffness with daily activity, along with mild effusion of the RLE. I reviewed her radiographs with there, there is no evidence of hardware loosening. Her exam is benign. I reassured her. Follow-up as needed. (2) History of left knee replacement: Code(s): Z96.652 - Presence of left artificial knee joint Plan: Doing well, no complaints. Orders: Orders XR knee RT 2V 09/06/23 M25.569 - Pain in unspecified knee XR knee standing BI 09/06/23 M25.569 - Pain in unspecified knee Coding Level of Care Code Est Pt Level 3 (06181) Diagnoses History of total right knee replacement (TKR) Z96.651 History of left knee replacement Z96.652
== END 2023-09-06 12:29 | disposition home or self-care (01) ==
PROVIDERS: PCP Internal Medicine; Visit Provider Orthopaedic Surgery
DX: M25.561 Pain in right knee (principal); M25.562 Pain in left knee; Z96.653 Presence of artificial knee joint, bilateral
CPT/HCPCS: 99213

== ENCOUNTER 2023-09-06 11:23 | Outpatient (REF) | payer OTHER, SELFPAY ==
--- NOTE | ~2023-09-06 | XR_ITS ---
EXAMINATION: XR KNEE AP STANDING CLINICAL INFORMATION: Pain in unspecified knee. COMPARISON: Right knee 09/06/2023. Bilateral knees 04/18/2021. TECHNIQUE: AP bilateral standing view of the knees was obtained. FINDINGS: RIGHT KNEE: Status post right knee total arthroplasty. Hardware appears intact. Small suprapatellar quadriceps enthesophyte and joint effusion demonstrated on lateral and sunrise images of the right knee of 09/06/2023. LEFT KNEE: AP standing view only of the left knee again demonstrates a left total knee arthroplasty which appears similar. Increased soft tissue calcification medial to the left medial femoral condyle. XR/XR knee standing BI IMPRESSION: Status post bilateral total knee arthroplasties.
--- NOTE | ~2023-09-06 | XR_ITS ---
EXAMINATION: XR KNEE, RIGHT CLINICAL INFORMATION: Right knee COMPARISON: 10/02/2019 TECHNIQUE: Two views of the right knee. FINDINGS: Lateral and sunrise views only of the right knee. Status post right total arthroplasty. Joint effusion. Spurring along the superior and inferior aspects of the patella. XR/XR knee RT 2V IMPRESSION: Lateral and sunrise views only demonstrate right knee arthroplasty. Hardware appears intact on views provided.
== END 2023-09-06 11:24 | disposition home or self-care (01) ==
LOC: HO.HOSX 11:23
PROVIDERS: PCP Internal Medicine; Visit Provider Orthopaedic Surgery
DX: T84.84XA Pain due to internal orthopedic prosthetic devices, implants and grafts, initial encounter (principal); Z96.653 Presence of artificial knee joint, bilateral
CPT/HCPCS: 73560; 73565

== ENCOUNTER 2024-04-24 08:37 | Outpatient (AMB) | payer OTHER, SELFPAY ==
--- NOTE | 2024-04-24 08:38 | MHC.OFFVIS ---
Intake Visit Reasons: Newprob-behind left knee/pain Intake Note: Mayte is a 61 year old female who presents today for a follow up of her bilateral knee pain with history of TKA: Left TKA 08/24/2020, Right TKA 08/20/2019. Last seen in 2022. She reports she has een having pain in the left knee when she stands. She does report that she was wearing some shoes that were not as supportive as her usual shoes. Allergies sulfamethoxazole [From BACTRIM] Allergy (Unknown, Verified 04/24/24 08:43) DIARRHEA trimethoprim [From BACTRIM] Allergy (Unknown, Verified 04/24/24 08:43) DIARRHEA environmental/hay fever Allergy (Unknown, Uncoded 04/24/24 08:43) itching Medication List - Last Reconciled 04/24/24 by Karen Shirley, RN acetaminophen 325 mg PO Q4H PRN 30 days adalimumab (Humira Pen) 1 syringe subcut Q2W aspirin 325 mg PO BID 30 days biotin 1 mg PO DAILY diclofenac sodium 75 mg PO DAILY PRN folic acid 1 tab PO DAILY hydrochlorothiazide 1 tab PO DAILY levothyroxine 1 tab PO DAILY lovastatin 1 tab PO BEDTIME methotrexate sodium 15 mg PO QWEEK multivitamin 1 tab PO DAILY oxycodone 5 mg PO Q12H PRN 15 days sennosides (Senna Lax) 17.2 mg (2 x 8.6 mg) PO BEDTIME 30 days HPI HPI Newprob-behind left knee/pain: Details: Mayte is a 61 year old female who presents today for a follow up of her bilateral knee pain with history of TKA: Left TKA 08/24/2020, Right TKA 08/20/2019. Last seen in 2022. She reports she has een having pain in the left knee when she stands. She does report that she was wearing some shoes that were not as supportive as her usual shoes. [facility] Medical History Osteoarthritis of left knee Hearing difficulty of right ear Hx of meningitis Psoriatic arthritis Osteoarthritis Hypothyroidism Anxiety Sleep apnea Hyperlipidemia Hypertension Surgical History (Updated 09/06/23 @ 11:31 by Ricky Fontenot) History of wisdom tooth extraction History of gynecologic surgery Hx of colonoscopy Hx of tonsillectomy History of carpal tunnel repair History of total right knee replacement (TKR) Social History Are you a primary wound care physician to a significant other at home: No Do you presently have visiting nurse or other home services: No Comment: pt sleeping Second Hand Smoke Exposure: No service: No Current occupational status: employed and retired Current occupation: medical leave-right handed Physical Exam Extrem Other: 0-130 bilateral knees no ttp no effusion stable to v/v stress Results Reviewed Results Reviewed: I personally reviewed relevant radiographs. Bilateral total knee arthroplasty in expected post operative position with no hardware complications or evidence of loosening Assessment & Plan Assessment & Plan (1) History of total right knee replacement (TKR): Comment: 08/20/19 Code(s): Z96.651 - Presence of right artificial knee joint Category: Surgical Plan: Doing well. No issues. Will f/u as needed. (2) History of left knee replacement: Code(s): Z96.652 - Presence of left artificial knee joint Category: Surgical Plan: Doing well. No issues. Will f/u as needed. Coding Level of Care Code Est Pt Level 3 (83856) Diagnoses History of total right knee replacement (TKR) Z96.651 History of left knee replacement Z96.652
== END 2024-04-24 08:55 | disposition home or self-care (01) ==
LOC: HO.HOS 08:37
PROVIDERS: PCP Internal Medicine; Visit Provider Orthopaedic Surgery
DX: Z47.89 Encounter for other orthopedic aftercare (principal); Z96.653 Presence of artificial knee joint, bilateral
CPT/HCPCS: 99212

== ENCOUNTER → 2024-04-24 08:37 | Outpatient (BNVA) | payer OTHER, SELFPAY | PROVIDERS: PCP Internal Medicine; Visit Provider Orthopaedic Surgery ==

== ENCOUNTER 2025-01-02 08:55 | Outpatient (REF) | payer OTHER, SELFPAY ==
--- NOTE | ~2025-01-02 | XR_ITS ---
EXAMINATION: XR WRIST 3 OR MORE VIEWS LEFT HISTORY: M25.532 - Pain in left wrist COMPARISON: There are no prior studies available for comparison. FINDINGS: Three views of the left wrist are submitted. Osseous mineralization is normal. There is no fracture or dislocation. The joint spaces are preserved. There is a soft tissue calcification at the dorsal and ulnar aspect of the distal forearm. XR/XR wrist LT min 3V IMPRESSION: Unremarkable examination of the left wrist. Electronically signed by: Ta Oliveros MD 01/05/2025 12:18 PM EDT
--- OUTSIDE RECORDS SUMMARY | 2025-01-02 09:36 | XMS_ITS | Clinical Summary ---
Author Organization [address] Address [address] [place] [phone] Phone Care Team Providers Care Evp Business [employer] Name Role Phone Evelyne Rose MD Primary Care Prov ider Allergies Active Allergy Reactions Criticality Noted Date Comments Sulfamethoxazole-Trimethoprim Diarrhea 2016 Medications atorvastatin (LIPITOR) 40 mg tablet Take 1 tablet (40 mg total) by mouth 1 (one) time each day. 3 Active dicyclomine (BENTYL) 10 mg capsule Take 1 Capsule by mouth 2 times daily as needed for Other (as needed for stomach pain). 4 Active adalimumab-ada z (HYRIMOZ) 40 mg/0.4 mL pen Inject 0.4 mL (40 mg total) under the skin. 4 Active diclofenac (VOLTAREN) 75 mg EC tablet Take 1 tablet (75 mg total) by mouth. 3 Active MELATONIN ORAL Take by mouth. Active loperamide (IMODIUM) 2 mg capsule Take 1 Capsule by mouth 4 times daily as needed for Diarrhea. 3 Active methotrexate 2.5 mg tablet 1 tablet (2.5 mg total) 7 Active miscellaneous medical supply misc Inhale by mouth. CPAP Historical (HISTORICAL CPAP) Inhale into the lungs. SMS-pressure 6-16 Active FOLIC ACID ORAL Take 1 tablet by mouth 1 (one) time each day. Active biotin 5 mg capsule Take 1 capsule (5 mg total) by mouth 1 (one) time each day. Active multivit-min/f errous fumarate (MULTI VITAMIN ORAL) Take 1 tablet by mouth 1 (one) time each day. Active levothyroxine (SYNTHROID, LEVOTHROID) 125 mcg tablet Take 1 tablet (125 mcg total) by mouth 1 (one) time each day. 90 tablet 1 5 Active hydroCHLOROthi azide (HYDRODIURIL) 25 mg tablet Take 1 tablet (25 mg total) by mouth 1 (one) time each day. 90 tablet 1 5 Active hydroCHLOROthi azide (HYDRODIURIL) 25 mg tablet Take 1 tablet (25 mg total) by mouth 1 (one) time each day. 12/31/19 25 Discontinu ed(Reorder ) Active Problems Problem Noted Date Diagnosed Date Primary osteoarthritis involving multiple joints 07/17/2023 Overview (10/10/2024): Last Assessment & Plan: Osteoarthritis in multiple joints currently stable on diclofenac once a day. Class 2 severe obesity with body mass index (BMI) of 35 to 39.9 with serious comorbidity 05/26/2019 Hypertension 01/02/2017 DJD (degenerative joint disease) of knee 015 Iron deficiency anemia 11/24/2011 Hyperlipidemia with target LDL less than 160 Obstructive sleep apnea 09/09/2009 Overview (10/10/2024): [facility] Home Polysomnogram: Date 08/17/2017; AHI 19, Unclassified apneas 0; Obstructive apneas 79; Central apneas 2; Mixed apneas 0; hypopneas 68; average oxygen saturation 94% (lowest 79% without saturations <88% for 5% or more of study) Last Assessment & Plan: Patient has moderate sleep apnea diagnosed in 2017 She uses a CPAP machine with supplies given by sleep medicine services DME compliance is 100% ESS score is low Continue with CPAP machine Yearly appointment with me for supplies. Allergic rhinitis 11/01/2005 Hypothyroidism 11/01/2005 Psoriatic arthritis 11/01/2005 Encounters Date Type Department Care Team Description 12/19/2024 10:45 AM EST Consult Bariatric Surgery - [address] [place] [phone] Colleen Silveira PA Morbid obesity (CMS/[facility]) 11/25/2024 2:15 PM EST - 11/25/2024 11:59 PM EST Hospital Encounter [facility] [address] [place], [place] [phone] Left wrist pain Discharge Disposition: Home or Self Care 11/25/2024 1:15 PM EST Office Visit Adult Medicine [address] [phone] Malaika Lai PA Left wrist pain (Primary Dx) from Last 3 Months Immunizations Name Administration Dates Next Due Influenza Quadravalent, MDCK , 0.5ml, preservative free (Flucelvax) 6mo and older 07/16/2023 Influenza Quadravalent, MDCK , 0.5ml, with preservative (Flucelvax) 6mo and older 08/11/2018,08/19/2017 Influenza trivalent, 0.5mL, preservative free (Fluarix; FluLaval; Fluzone) ages 6mo and older (Afluria) 3 years and older 07/28/2016,08/29/2013,10/10/2011 Influenza, Unspecified 07/09/2024,07/31/2022,10/2020 Pfizer (ages 12 & older) Bivalent, COVID-19 06/29,08/29/2022 Tdap Tetanus diptheria acell ular pertussis (Boostrix; Adacel) 7yo and older 11/04/2007 Zoster recombinant (Shingrix ) 19yo and older 04/25/2022,12/18/2021 Surgical History Surgery Date Site/Laterality Comments CARPAL TUNNEL RELEASE PROCEDURE: HISTORICAL CARPAL TUNNEL REL TONSILLECTOMY PROCEDURE: HISTORICAL TONSILLECTOMY COLONOSCOPY 11/18/2012 PROCEDURE: HISTORICAL COLONOSCOPY; COMMENT: diverticulosis KNEE SURGERY 08/19/2019 Right PROCEDURE: HISTORICAL KNEE SURGERY KNEE SURGERY 2019 Left PROCEDURE: HISTORICAL KNEE SURGERY; COMMENT: Left knee replacement Medical History Medical History Date Comments Allergic rhinitis 11/01/2005 DX:Allergic rh initis DJD (degenerative joint dise ase) of knee 10/13/2015 DX:DJD (degenerative joint d isease) of knee History of diverticulitis of colon 01/02/2017 DX:History of diverticulitis of colon Hyperlipidemia with target L DL less than 160 10/10/2011 DX:Hyperlipidemia with targe t LDL less than 160 Hypertension 01/02/2017 DX:Hypertension Hypothyroidism 11/01/2005 DX:Hypothyroidis m Iron deficiency anemia 11/24/2011 DX:Iron d eficiency anemia Morbid obesity with BMI of 4 0.0-44.9, adult ([facility]) 04/11/2011 DX:Morbid obesity with BMI o f 40.0-44.9, adult ([facility]) Obstructive sleep apnea 09/09/2009 DX:Obstr uctive sleep apnea; COMMENT: [facility] Home Polysomnogram: Date 08/17/2017; AHI 19, Unclassified apneas 0; Obstructive apneas 79; Central apneas 2; Mixed apneas 0; hypopneas 68; average oxygen saturation 94% (lowest 79% without saturations <88% for 5% or more of study) Psoriatic arthritis ([facility]) 11/01/2005 DX :Psoriatic arthritis ([facility]) Family History Medical History Relation Name Comments Other: blood cancer Brother unsure o f origin Ulcerative colitis Father Other: Angina Mother Relation Name Status Comments Brother Father Mother Social History Tobacco Use Types Packs/Day Years Used Date Smoking Tobacco: Never Smokeless Tobacco: Never Alcohol Use Standard Drinks/Week Comments Yes 0 (1 standard drink = 0.6 oz pur e alcohol) Housing Instability Answer Date Recorde d Are you worried that in the next 2 months you may not have stable housing? No 11/25/2024 Food Access & Nutrition Answer Date Rec orded Do you have access to a vari ety of food including fruits and vegetables? Yes 11/25/2024 Access to Healthcare Answer Date Record ed Within the last 3 months, ho w many times did you visit the emergency department for your medical care? 0 11/25/2024 Health Literacy Answer Date Recorded How often do you need to hav e someone help you when you read instructions, pamphlets, or other written material from your doctor or pharmacy? Never 11/25/2024 Caregiver: How often do you need to have someone help you when you read instructions, pamphlets, or other written material from your doctor or pharmacy? Not on file 11/25/2024 Financial Risk Answer Date Recorded How hard is it for you to pa y for the very basics like food, housing, medical care, and air conditioning / heating? Not very hard 11/25/2024 Transportation Answer Date Recorded Has the lack of transportati on kept you from meetings, work, or from getting things needed for daily living? No Has the lack of transportati on kept you from medical appointments or from getting medications? No 11/25/2024 Social Isolation Answer Date Recorded How often do you feel lonely or isolated from th ose around you? Never 11/25/2024 Food Risk Answer Date Recorded Within the past 12 months we worried whether our food would run out before we got money to buy more. Never true 11/25/2024 Within the past 12 months th e food we bought just didn't last and we didn't have money to get more. Never true 11/25/2024 Dependent Care Answer Date Recorded Do you need help finding or paying for care for your loved ones. For example, early childhood associate or elderly care for an older adult? No 11/25/2024 Education Answer Date Recorded Do you think completing more education or training, like finishing a GED, going to college, or learning a trade, would be helpful for you? No 11/25/2024 Employment and Income Answer Date Recor ded During the last four weeks, have you been actively looking for work? No 11/25/2024 Living Situation Answer Date Recorded What is your living situation? 0 11/25/2024 Comments Unknown Sex and Gender Information Value Date Recorded Sex Assigned at Not on file Legal Sex Female 11:33 PM EST Gender Identity Not on file Sexual Orientation Not on file Obstetrics History Last Filed Vital Signs Vital Sign Reading Time Taken Comments Blood Pressure 155/87 12/19/2024 10:51 AM EST Pulse 112 12/19/2024 10:51 AM EST Temperature 36.5 ??C (97.7 ??F) 11/25/2024 1:46 PM ES T Respiratory Rate 17 11/25/2024 1:46 PM EST Oxygen Saturation - - Inhaled Oxygen Concentration - - Weight 112 kg (247 lb) 12/19/2024 10:51 AM EST Height 162.6 cm (5' 4 ) 12/19/2024 10:51 AM EST Body Mass Index 42.4 12/19/2024 10:51 AM EST Plan of Treatment Upcoming Encounters Date Type Department Care Team (Late st Contact Info) Description 02/17/2025 8:30 AM EDT Office Visit Adult Medicine [facility] [address] [place] [phone] Evelyne Rose MD [address] [place] [address] 03/19/2025 10:00 AM EDT Office Visit Bariatric Surgery - [place] [address] [facility] [address] [place] [phone] Colleen Silveira PA [address] [facility] [address] [place] [address] Health Maintenance Due Date Last Done Comments Breast Cancer Screening 1962 Cervical Cancer Screening: HPV 1983 Pneumococcal Vaccine: 50+ Years (1 of 1 - PCV) 2012 DTaP,Tdap,and Td Vaccines (2 - Td or Tdap) 11/04/2017 11/04/2007 RSV Immunization Patients 60+ Years Old (1 - Risk 60-74 years 1-dose series) 2022 HIV Screening 10/07/2022 COVID-19 Vaccine ( season) 2024 07/09/2024, 07/16/2023, 08/29/2022, Additional history exists Hypertension/CHF/CAD Annual BMP Blood Test 11/18/2025 11/18/2024, 06/17/2024, 02/14/2024, Additional history exists Depression Screening 11/25/2025 11/25/2024 Social Influencers of Health Screening 11/25/2025 11/25/2024 Cholesterol Screening (Lipid Panel) 02/11/2029 02/12/2024 Colorectal Cancer Screening: Colonoscopy 02/19/2034 02/20/2024 Zoster Vaccines Completed 04/25/2022, 12/18/2021 Hepatitis C Screening Completed 06/12/2023, 013 Influenza Vaccine Completed 07/09/2024, , 07/31/2022, Additional history exists HIB Vaccines Aged Out No longer eligi ble based on patient's age to complete this topic HPV Vaccines Aged Out No longer eligi ble based on patient's age to complete this topic Hepatitis A Vaccines Aged Out No long er eligible based on patient's age to complete this topic Hepatitis B Vaccines Aged Out No long er eligible based on patient's age to complete this topic IPV Vaccines Aged Out No longer eligi ble based on patient's age to complete this topic MMR Vaccines Aged Out No longer eligi ble based on patient's age to complete this topic Meningococcal ACWY Vaccine Aged Out N o longer eligible based on patient's age to complete this topic Meningococcal B Vacine Aged Out No lo nger eligible based on patient's age to complete this topic Pneumococcal Vaccine: Pediatrics (0 to 5 Years) and At-Risk Patients (6 to 64 Years) Aged Out No longer eligible based on patient's age to complete this topic RSV Immunization Patients Under 20 months Aged Out No longer eligible based on patient's age to complete this topic Varicella Vaccines Aged Out No longer eligible based on patient's age to complete this topic Procedures Procedure Name Priority Date/Time Associated Diagnosis Comments XR WRIST 3+ VIEWS LEFT Routine 5 2:35 PM EST Left wrist pain CBC WITH AUTO DIFFERENTIAL Routine 11/18/2024 10:51 AM EST Psoriatic arthritis (CMS/HCC) Methotrexate, intermediate, current use NSAID long-term use COMPREHENSIVE METABOLIC PANEL Routine 11/18/2024 10:51 AM EST Psoriatic arthritis (CMS/HCC) Methotrexate, keno terminal operator, current use NSAID long-term use SEDIMENTATION RATE Routine 11/18/2024 10 :51 AM EST Psoriatic arthritis (CMS/HCC) Methotrexate, intermediate, current use NSAID long-term use C-REACTIVE PROTEIN Routine 11/18/2024 10 :51 AM EST Psoriatic arthritis (CMS/HCC) Methotrexate, keno terminal operator, current use NSAID long-term use CBC AND DIFFERENTIAL Routine 11/18/2024 10:51 AM EST Psoriatic arthritis (CMS/HCC) Methotrexate, intermediate, current use NSAID long-term use HM COLONOSCOPY Routine 02/20/2024 LIPID PANEL Routine 02/12/2024 HEPATITIS C SCREENING Routine 04/07/2013 from Last 3 Months or Most Recently Relevant to Health Maintenance Results * XR Wrist 3+ Views Left (11/25/2024 2:35 PM EST) Anatomical Region Laterality Modality Upper Extremities, Wrist Left Radiogr aphic Imaging 11/25/2024 5:32 PM EST Narrative 11/25/2024 5:33 PM EST Left wrist, 3 views. History left lateral wrist pain. There are mild degenerative changes in the first carpometacarpal joint and first metacarpophalangeal joint. There is no visible fractures, dislocations or abnormal soft tissue calcifications. CONCLUSIONS: No evidence of fractures or dislocations. Degenerative changes as detailed -------- FINAL REPORT -------- Dictated By: Maribell Duran Dictated Date: 11/25/2024 17:32 ET Assigned Physician: Maribell Duran Reviewed and Electronically Signed By: Maribell Duran Signed Date: 11/25/2024 17:33 ET Workstation ID: [id number] Transcribed By: Self Edit Transcribed Date: 11/25/2024 17:32 ET Procedure Note Maribell Duran MD - 11/25/2024 Left wrist, 3 views. History left lateral wrist pain. There are mild degenerative changes in the first carpometacarpal joint andfirst metacarpophalangeal joint. There is no visible fractures,dislocations or abnormal soft tissue calcifications. CONCLUSIONS: No evidence of fractures or dislocations. Degenerativechanges as detailed -------- FINAL REPORT -------- Dictated By: Maribell Duran Dictated Date: 11/25/2024 17:32 ET Assigned Physician: Maribell Duran Reviewed and Electronically Signed By: Maribell Duran Signed Date: 11/25/2024 17:33 ET Workstation ID: [id number] Transcribed By: Self Edit Transcribed Date: 11/25/2024 17:32 ET us Malaika Ming [facility] IMG XR PROCEDURES Final Result * CBC auto differential (11/18/2024 10:51 AM EST) WBC 6.2 4.8 - 10.8 K/mcL LAB HEMETOLOGY METHOD 11/18/2024 11:56 AM [facility] RBC 4.50 3.80 - 4.80 M/mcL LAB HEMETOLOGY METHOD 11/18/2024 11:56 AM [facility] Hemoglobin 13.7 11.5 - 16.0 g/dL LAB HEMETOLOGY METHOD 11/18/2024 11:56 AM [facility] Hematocrit 41.0 35.0 - 47.0 % LAB HEMETOLOGY METHOD 11/18/2024 11:56 AM [facility] MCV 91.5 79.0 - 98.0 FL LAB HEMETOLOGY METHOD 11/18/2024 11:56 AM [facility] MCH 30.6 27.0 - 32.0 pcg LAB HEMETOLOGY METHOD 11/18/2024 11:56 AM [facility] MCHC 33.4 32.0 - 37.0 g/dL LAB HEMETOLOGY METHOD 11/18/2024 11:56 AM [facility] RDW 13.8 11.0 - 15.0 % LAB HEMETOLOGY METHOD 11/18/2024 11:56 AM [facility] Platelets 238 130 - 400 K/mcL LAB HEMETOLOGY METHOD 11/18/2024 11:56 AM [facility] MPV 9.8 7.0 - 11.0 FL LAB HEMETOLOGY METHOD 11/18/2024 11:56 AM [facility] NRBC 0.0 <1.0 % LAB HEMETOLOGY METHOD 11/18/2024 11:56 AM [facility] NRBC Absolute 0.00 <0.10 K/mcL LAB HEMETOLOGY METHOD 11/18/2024 11:56 AM [facility] Neutrophils Relative 61.7 % LAB HEMETOLOGY METHOD 11/18/2024 11:56 AM [facility] Lymphocytes Relative 27.0 % LAB HEMETOLOGY METHOD 11/18/2024 11:56 AM [facility] Monocytes Relative 8.2 % LAB HEMETOLOGY METHOD 11/18/2024 11:56 AM [facility] Eosinophils Relative 2.2 % LAB HEMETOLOGY METHOD 11/18/2024 11:56 AM [facility] Basophils Relative 0.6 % LAB HEMETOLOGY METHOD 11/18/2024 11:56 AM [facility] Immature Granulocytes Relative 0.3 % LAB HEMETOLOGY METHOD 11/18/2024 11:56 AM [facility] Neutrophils Absolute 3.84 1.50 - 7.00 K/mcL LAB HEMETOLOGY METHOD 11/18/2024 11:56 AM [facility] Lymphocytes Absolute 1.68 1.00 - 5.00 K/mcL LAB HEMETOLOGY METHOD 11/18/2024 11:56 AM [facility] Monocytes Absolute 0.51 0.20 - 1.00 K/mcL LAB HEMETOLOGY METHOD 11/18/2024 11:56 AM [facility] Eosinophils Absolute 0.14 0.00 - 0.50 K/mcL LAB HEMETOLOGY METHOD 11/18/2024 11:56 AM [facility] Basophils Absolute 0.04 0.00 - 0.20 K/mcL LAB HEMETOLOGY METHOD 11/18/2024 11:56 AM [facility] Immature Granulocytes Absolute 0.02 0.00 - 0.03 K/mcL LAB HEMETOLOGY METHOD 11/18/2024 11:56 AM EST [facility] Blood Venous blood specimen / Unknown Venipuncture / Unknown 11/18/2024 10:51 AM EST 11/18/2024 10:51 AM EST aHlima Mishra MD LAB BLOOD ORDERABLES Final Result Performing Organization Address City/[facility]/ZIP Co de Phone Number [facility] [address] [place] [address], [place] [phone] * Sedimentation rate (11/18/2024 10:51 AM EST) Pathologist [facility] Sed Rate 9 0 - 30 mm/hr LAB HEMETOLOGY METHOD 11/18/2024 12:12 PM EST [facility] Blood Venous blood specimen / Unknown Venipuncture / Unknown 11/18/2024 10:51 AM EST 11/18/2024 10:51 AM EST Halima Mishra MD LAB BLOOD ORDERABLES Final Result Performing Organization Address [facility] Co de Phone Number [facility] [address] [place] [address], [place] [phone] * C-reactive protein (11/18/2024 10:51 AM EST) C-Reactive Protein 0.30 <=0.50 mg/dL LAB CHEMISTRY METHOD 11/18/2024 3:58 PM EST [facility] Blood Venous blood specimen / Unknown Venipuncture / Unknown 11/18/2024 10:51 AM EST 11/18/2024 10:51 AM EST Halima Mishra MD LAB BLOOD ORDERABLES Final Result Performing Organization Address City/[facility]/ZIP Co de Phone Number [facility] [address] [place] [address], [place] [phone] * (ABNORMAL) Comprehensive metabolic panel (11/18/2024 10:51 AM EST) Sodium 139 133 - 145 mmol/L LAB CHEMISTRY METHOD 11/18/2024 3:58 PM [facility] Potassium 3.8 3.5 - 5.5 mmol/L LAB CHEMISTRY METHOD 11/18/2024 3:58 PM [facility] Chloride 104 96 - 110 mmol/L LAB CHEMISTRY METHOD 11/18/2024 3:58 PM [facility] CO2 31 21 - 32 mmol/L LAB CHEMISTRY METHOD 11/18/2024 3:58 PM [facility] Anion Gap 4 3 - 11 LAB CHEMISTRY METHOD 11/18/2024 3:58 PM [facility] Glucose 117(H) 70 - 100 mg/dL LAB CHEMISTRY METHOD 11/18/2024 3:58 PM [facility] BUN 19 5 - 25 mg/dL LAB CHEMISTRY METHOD 11/18/2024 3:58 PM [facility] Creatinine 0.86 0.50 - 1.10 mg/dL LAB CHEMISTRY METHOD 11/18/2024 3:58 PM [facility] eGFR 76 >=60 mL/min/1. 73m2 LAB CHEMISTRY METHOD 11/18/2024 3:58 PM [facility] Comment:Calculation based on the??Chronic Kidney Disease Epidemiology Collaboration (CKD-EPI) equation refit??without adjustment for race. BUN/Creatinine Ratio 22.1 LAB CHEMISTRY METHOD 11/18/2024 3:58 PM [facility] Calcium 9.0 8.5 - 10.5 mg/dL LAB CHEMISTRY METHOD 11/18/2024 3:58 PM [facility] AST (SGOT) 35 10 - 42 unit/L LAB CHEMISTRY METHOD 11/18/2024 3:58 PM [facility] ALT (SGPT) 42 10 - 60 unit/L LAB CHEMISTRY METHOD 11/18/2024 3:58 PM EST [facility] Alkaline Phosphatase 84 42 - 121 unit/L LAB CHEMISTRY METHOD 11/18/2024 3:58 PM [facility] Total Protein 6.6 6.0 - 8.0 g/dL LAB CHEMISTRY METHOD 11/18/2024 3:58 PM [facility] Albumin 3.7 3.2 - 5.0 g/dL LAB CHEMISTRY METHOD 11/18/2024 3:58 PM [facility] Total Bilirubin 0.5 0.0 - 1.4 mg/dL LAB CHEMISTRY METHOD 11/18/2024 3:58 PM [facility] Blood Venous blood specimen / Unknown Venipuncture / Unknown 11/18/2024 10:51 AM EST 11/18/2024 10:51 AM EST Halima Mishra MD LAB BLOOD ORDERABLES Final Result [facility] [address] [place] [address], * Colonoscopy (02/20/2024) [facility] Colonoscopy No Interpretation , Abstracted Anatomical Region Laterality Modality Other [facility] Provider HEALTH MAINTENANCE Final Result * (ABNORMAL) Lipid panel (02/12/2024) [facility] LDL/HDL Ratio 3 0 - 4 Triglycerides 163(A) 0 - 150 mg/dL Cholesterol 183 0 - 200 mg/dL HDL 63 >=40 mg/dL LDL Cholesterol 88 0 - 100 mg/dL Blood Venous blood specimen / Unknown Historical Kenyatta MORALES LAB BLOOD ORDERABLES Kristin l Result * Hepatitis C Screening (04/07/2013) [facility] Hepatitis C Screening Abstracted Historical Provider HEALTH MAINTENANCE Final Result from Last 3 Months or Most Recently Relevant to Health Maintenance Insurance [employer] Care Teams Evp Business Development Relationship Specialty Start Date End Date Evelyne Rose MD [address] [place] [address] [place] [phone] PCP - General Internal Medicine 11/25/24
--- OUTSIDE RECORDS SUMMARY | 2025-01-02 09:36 | XMS_ITS | Encounter Summary ---
[facility] [address] Address [address] [place] [address] Care Team Providers Care Rope Maker Name Role Phone Evelyne Rose MD Primary Care Prov ider Reason for Visit * Reason Comments Consult Medical weight manag ement * Consultation (Routine) - Closed Specialty Diagnoses / Procedures Referred By Contac t Referred To Contact Bariatrics Diagnoses Morbid obesity (CMS/HCC) Evelyne Rose MD [address] [place] [address] Phone: tel: fax: Ned Gloria MD [address] [address] Phone: tel: fax: Referral ID Status Reason Start Date Expiration Date V isits Requested Visits Authorized [id number] Closed Specialty Services Required 08/27/2024 08/27/2025 1 1 Encounter Details Date Type Department Care Team (Late st Contact Info) Description 12/19/2024 10:45 AM EST Consult Bariatric Surgery - [place] [address] [phone] Colleen Silveira PA [address] [phone] Morbid obesity (CMS/HCC) Social History Tobacco Use Types Packs/Day Years [...] care for your loved ones. For example, home child care provider or elderly care for an older adult? [...] on file Sexual Orientation Not on file documented as of this encounter Last Filed Vital Signs Vital Sign Reading Time Taken Comments Blood Pressure 155/87 12/19/2024 10:51 AM EST Pulse 112 12/19/2024 10:51 AM EST Temperature - - Respiratory Rate - - Oxygen Saturation - - Inhaled Oxygen Concentration - - Weight 112 kg (247 lb) 12/19/2024 10:51 AM EST Height 162.6 cm (5' 4 ) 12/19/2024 10:51 AM EST Body Mass Index 42.4 12/19/2024 10:51 AM EST documented in this encounter Progress Notes * ALEE Coker - 12/19/2024 10:45 AM EST Mayte Darden is a 64 y.o. year old female who presents for follow up regarding obesity. 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 In her early 20s she started to put on weight Throughout the years her weight has fluctuated between 220 to 270 pounds She is not into fat dieting She has tried weight watchers, working with a pulley mortiser operator, and Noom Although she has been successful in losing 30 to 40 pounds this has not been maintained long-term Physical Activity: To the gym frequently throughout the week with her neighbor PMHx: Psoriatic arthritis Obstructive sleep apnea on CPAP Hypertension Hypothyroidism Denies history of gastroparesis or pancreatitis Denies history of hypothyroidism or glaucoma Denies personal familial history of medullary thyroid cancer or multiple endocrine neoplasia syndrome Medications: Humira Hydrochlorothiazide Levothyroxine PSHx: Carpal tunnel Bilateral knee replacement Social history: Non-smoker No excessive alcohol use No recreational drug use Body mass index is 42.4 kg/m??. ROS: GENERAL: No malaise, significant unintentional weight loss, fever, chills or night sweats. RESPIRATORY: No cough, wheezing or shortness of breath CARDIOVASCULAR: No chest pain, leg swelling or palpitations. GI: No abdominal discomfort, nausea, vomiting, or change in bowel habits. : No dysuria, frequency or incontinence. SKIN: No lesions, rash or itching. HEMATOLOGY/LYMPHOLOGY No prolonged bleeding, easy bruisability or swollen nodes. MUSCULOSKELETAL: No abnormalities. NEURO: No abnormalities. The remainder of the review of systems is noncontributory PAST MEDICAL HISTORY: Patient Active Problem List Diagnosis Allergic rhinitis Class 2 severe obesity with body mass index (BMI) of 35 to 39.9 with serious comorbidity ([facility]) DJD (degenerative joint disease) of knee Hyperlipidemia with target LDL less than 160 Hypertension Hypothyroidism Iron deficiency anemia Obstructive sleep apnea Primary osteoarthritis involving multiple joints Psoriatic arthritis ([facility]) PAST SURGICAL HISTORY: Past Surgical History: Procedure Laterality Date CARPAL TUNNEL RELEASE PROCEDURE: HISTORICAL CARPAL TUNNEL REL COLONOSCOPY 11/18/2012 PROCEDURE: HISTORICAL COLONOSCOPY; COMMENT: diverticulosis KNEE SURGERY Right 08/19/2019 PROCEDURE: HISTORICAL KNEE SURGERY KNEE SURGERY Left 2019 PROCEDURE: HISTORICAL KNEE SURGERY; COMMENT: Left knee replacement TONSILLECTOMY PROCEDURE: HISTORICAL TONSILLECTOMY SOCIAL HISTORY: Social History Tobacco Use Smoking status: Never Smokeless tobacco: Never Substance Use Topics Alcohol use: Yes FAMILY HISTORY: Family History Problem Relation Name Age of Onset Other (Other: blood cancer) Brother unsure of origin Other (Other: Angina ) Mother Ulcerative colitis Father Family Status Relation Name Status Brother Mother Father No partnership data on file MEDICATIONS: There are no discontinued medications. ACTIVE MEDICATIONS: No outpatient medications have been marked as taking for the 12/19/24 encounter (Consult) with ALEE Coker. ALLERGIES: Allergies Allergen Reactions Sulfamethoxazole-Trimethoprim Diarrhea PHYSICAL EXAM: Visit Vitals BP (!) 155/87 Pulse (!) 112 Ht 1.626 m (64 ) Wt 112 kg (247 lb) BMI 42.40 kg/m?? Smoking Status Never BSA 2.14 m?? APPEARANCE: Alert and in no acute distress EYES: Conjunctiva normal and sclera normal and anicteric. LUNG: Chest no retractions. ABDOMEN: Soft, non-tender, without organomegaly or palpable masses. EXTREMITIES: Extremities warm and well perfused without clubbing, cyanosis, or edema. SKIN: Skin color and texture normal. No rashes or lesions. ASSESSMENT: 1. Morbid obesity (CMS/HCC) PLAN: 1.Obesity - At this time patient would like to start meeting with a pulley mortiser operator to see if she is able to lose weight on her own We did discuss multiple antiobesity medication options and she declines initiation of treatment at this time Medication and lab orders: No orders of the defined types were placed in this encounter. Other orders: AMB REFERRAL TO WEIGHT MANAGEMENT cc: Evelyne Stinson MD documented in this encounter Plan of Treatment Upcoming Encounters Date Type Department Care Team ([facility] st Contact Info) Description 02/17/2025 8:30 AM EDT Office Visit Adult Medicine [address] [phone] Evelyne Rose MD [address] [place] [phone] 03/19/2025 10:00 AM EDT Office Visit Bariatric Surgery [facility] [address] [phone] Colleen Silveira PA [address] [phone] documented as of this encounter Visit Diagnoses Diagnosis Morbid obesity (CMS/HCC) Morbid obesity documented in this encounter Orders Outpatient Referral Count Last Ordered Date st Ordered Date AMB REFERRAL TO WEIGHT MANAGEMENT 1 025 documented in this encounter Additional Health Concerns Assessment Noted Time PHQ-9 Depression Total Score: 0 11/25/19 1:44 PM EST documented as of this encounter Care Teams Rope Maker Relationship Specialty Start Date End Date Evelyne Rose MD [address] [place] [phone] PCP - General Internal Medicine 11/25/24 documented as of this encounter
== END 2025-01-02 08:56 | disposition home or self-care (01) ==
LOC: HO.HOSX 08:55
DX: M25.532 Pain in left wrist (principal)
CPT/HCPCS: 73110

== ENCOUNTER 2025-01-02 10:20 | Outpatient (AMB) | payer OTHER, SELFPAY ==
--- NOTE | 2025-01-02 10:23 | A.OFFVIS_ITS ---
Vital Signs 01/02/25 10:24 Height 5 ft 4 in Weight 247 lb BMI 42.4 Intake Visit Reasons: new problem LT wrist pain Intake Note: Mayte is a 64 year old right hand dominant female who presents today for a new problem visit for evaluation of left wrist pain that began about 1 month ago. Patient reports she feels a cyst on the radial aspect of the left wrist, radiating up to mid forearm. Patient has tried icing. Denies numbness, tingling, finger locking. Patient denies injuries or surgeries to the left hand. Allergies sulfamethoxazole [From BACTRIM] Allergy (Unknown, Verified 01/02/25 10:28) DIARRHEA trimethoprim [From BACTRIM] Allergy (Unknown, Verified 01/02/25 10:28) DIARRHEA environmental/hay fever Allergy (Unknown, Uncoded 01/02/25 10:28) itching HPI HPI new problem LT wrist pain: Details: Mayte is a 64 year old right hand dominant female who presents today for a new problem visit for evaluation of left wrist pain that began about 1 month ago. Patient reports she feels a cyst on the radial aspect of the left wrist, radiating up to mid forearm. Patient has tried icing. Denies numbness, tingling, finger locking. Patient denies injuries or surgeries to the left hand. [facility] Medical History (Updated 01/02/25 @ 10:42 by ALEE Ramirez) Osteoarthritis of left knee Hearing difficulty of right ear Hx of meningitis Psoriatic arthritis Osteoarthritis Hypothyroidism Anxiety Sleep apnea Hyperlipidemia Hypertension Surgical History (Updated 09/06/23 @ 11:31 by Ricky Fontenot) History of wisdom tooth extraction History of gynecologic surgery Hx of colonoscopy Hx of tonsillectomy History of carpal tunnel repair History of total right knee replacement (TKR) Social History Are you a primary child care leader to a significant other at home: No Do you presently have visiting nurse or other home services: No Comment: pt sleeping Second Hand Smoke Exposure: No service: No Current occupational status: employed and retired Current occupation: medical leave-right handed Review of Systems Const All systems reviewed & are unremarkable except as noted in HPI and below Physical Exam Vital Signs: BMI result Body Mass Index 42.4 Extrem Other: Patient is alert, oriented, and in no acute distress. Neuro: Normal sensation of the tips of all digits of the left hand at this time Vascular: Cap refill brisk Pain: No tenderness to palpation of the L hand or wrist Pain on the radial and ulnar aspects of the volar L wrist with resisted flexion and passive extension ROM: Patient is able to make a closed fist and extend all digits of L hand fully Wrist ROM full and intact Skin: No lacerations or abrasions. General: No ecchymosis, erythema, or evidence of infection. No visible or palpable mass noted Psych: Appears grossly normal Affect normal Attitude cooperative Results Reviewed Results Reviewed: X rays taken in the offise today and reviewed by me demonstrate no fracture or acute bony abnormality of the L wrist Assessment & Plan Assessment & Plan (1) Tendonitis of wrist, left: Code(s): M77.8 - Other enthesopathies, not elsewhere classified Category: Medical Plan 1. FCR and FCU tendonitis of L wrist Patient is educated about this condition Patient is educated about the typical reconvery course Patient is referred to OT for treatment of L wrist tendonitis Patient is educated that she should wear a velcro wrist splint when her wrist is in pain Patient will f/u as needed Orders: Orders XR wrist LT min 3V 01/02/25 M25.532 - Pain in left wrist OT Evaluation and Treatment 01/02/25 M77.8 - Other enthesopathies, not elsewhere classified Coding Level of Care Code Est Pt Level 3 (94872) Diagnoses Tendonitis of wrist, left M77.8
[2025-01-02 10:24] VITALS: BMI 42.4
--- OUTSIDE RECORDS SUMMARY | 2025-01-02 11:34 | XMS_ITS | Encounter Summary ---
[facility] Address [address] [place] [address] Care Team Providers Care Ball Holder Name Role Phone Evelyne Rose MD Primary Care Prov ider Reason for Visit * Reason Comments Consult Medical weight manag ement * Consultation (Routine) - Closed Specialty Diagnoses / Procedures Referred By Contac t Referred To Contact Bariatrics Diagnoses Morbid obesity (CMS/HCC) Evelyne Rose MD [address] [place] [phone] Phone: tel: fax: Ned Gloria MD [address] [address] Phone: tel: fax: Referral ID Status Reason Start Date Expiration Date V isits Requested Visits Authorized [id number] Closed Specialty Services Required 08/27/2024 08/27/2025 1 1 Encounter Details Date Type Department Care Team (Late st Contact Info) Description 12/19/2024 10:45 AM EST Consult Bariatric Surgery - [place] [address] [phone] Colleen Silveira PA [address] [phone] Morbid obesity (CMS/HCC) Social History Tobacco Use [...] care for your loved ones. For example, child day care center worker or elderly care for an older adult? [...] has tried weight watchers, working with a drone pilot, and Noom Although she has been successful [...] of 35 to 39.9 with serious comorbidity ([facility]) DJD (degenerative joint disease) of knee Hyperlipidemia with target LDL less than 160 Hypertension Hypothyroidism Iron deficiency anemia Obstructive sleep apnea Primary osteoarthritis involving multiple joints Psoriatic arthritis ([facility]) PAST SURGICAL HISTORY: Past Surgical History: [...] would like to start meeting with a drone pilot to see if she is able to [...] Upcoming Encounters Date Type Department Care Team ([facility] st Contact Info) Description 02/17/2025 8:30 AM EDT Office Visit Adult Medicine [address] [phone] Evelyne Rose MD [address] [place] [phone] 03/19/2025 10:00 AM EDT Office Visit Bariatric Surgery [facility] [address] [phone] Colleen Silveira PA [address] [phone] documented as of this encounter Visit Diagnoses Diagnosis Morbid obesity (CMS/HCC) Morbid obesity documented in this encounter Orders Outpatient Referral Count Last Ordered Date st Ordered Date AMB REFERRAL TO WEIGHT MANAGEMENT 1 025 documented in this encounter Additional Health Concerns Assessment Noted Time PHQ-9 Depression Total Score: 0 11/25/19 1:44 PM EST documented as of this encounter Care Teams Ball Holder Relationship Specialty Start Date End Date Evelyne Rose MD [address] [place] [phone] PCP - General Internal Medicine 11/25/24 documented as of this encounter
--- OUTSIDE RECORDS SUMMARY | 2025-01-02 11:34 | XMS_ITS | Clinical Summary ---
Author Organization [address] Address [address] [place] [phone] Phone Care Team Providers Care Surveillance Systems Engineer Name Role Phone Evelyne Rose MD Primary [...] 160 Obstructive sleep apnea 09/09/2009 Overview (10/10/2024): [facility] Home Polysomnogram: Date 08/17/2017; AHI 19, Unclassified [...] 10:45 AM EST Consult Bariatric Surgery - [address] [place] [phone] Colleen Silveira PA Morbid obesity (CMS/[facility]) 11/25/2024 2:15 PM EST - 11/25/2024 11:59 PM EST Hospital Encounter [facility] [address] [place], [place] [phone] Left wrist pain Discharge Disposition: Home or Self Care 11/25/2024 1:15 PM EST Office Visit Adult Medicine [address] [phone] Malaika Lai PA Left wrist pain (Primary [...] obesity with BMI of 4 0.0-44.9, adult ([facility]) 04/11/2011 DX:Morbid obesity with BMI o f 40.0-44.9, adult ([facility]) Obstructive sleep apnea 09/09/2009 DX:Obstr uctive sleep apnea; COMMENT: [facility] Home Polysomnogram: Date 08/17/2017; AHI 19, Unclassified apneas 0; Obstructive apneas 79; Central apneas 2; Mixed apneas 0; hypopneas 68; average oxygen saturation 94% (lowest 79% without saturations <88% for 5% or more of study) Psoriatic arthritis ([facility]) 11/01/2005 DX :Psoriatic arthritis ([facility]) Family History Medical History Relation Name Comments [...] for your loved ones. For example, child care specialist or elderly care for an older adult? [...] 8:30 AM EDT Office Visit Adult Medicine [facility] [address] [place] [phone] Evelyne Rose MD [address] [place] [address] 03/19/2025 10:00 AM EDT Office Visit Bariatric Surgery - [place] 175 [facility] [address] [place] [phone] Colleen Silveira PA 271 [facility] [address] [place] [address] Health Maintenance Due Date Last Done Comments [...] 10:51 AM EST Psoriatic arthritis (CMS/HCC) Methotrexate, jail, current use NSAID long-term use COMPREHENSIVE METABOLIC PANEL Routine 11/18/2024 10:51 AM EST Psoriatic arthritis (CMS/HCC) Methotrexate, long term acute care registered nurse, current use NSAID long-term use SEDIMENTATION RATE Routine 11/18/2024 10 :51 AM EST Psoriatic arthritis (CMS/HCC) Methotrexate, jail, current use NSAID long-term use C-REACTIVE PROTEIN Routine 11/18/2024 10 :51 AM EST Psoriatic arthritis (CMS/HCC) Methotrexate, long term acute care registered nurse, current use NSAID long-term use CBC AND DIFFERENTIAL Routine 11/18/2024 10:51 AM EST Psoriatic arthritis (CMS/HCC) Methotrexate, jail, current use NSAID long-term use HM COLONOSCOPY [...] Signed Date: 11/25/2024 17:33 ET Workstation ID: [id number] Transcribed By: Self Edit Transcribed Date: 11/25/2024 [...] Signed Date: 11/25/2024 17:33 ET Workstation ID: [id number] Transcribed By: Self Edit Transcribed Date: 11/25/2024 17:32 ET us Malaika Ming [facility] IMG XR PROCEDURES Final Result * CBC auto differential (11/18/2024 10:51 AM EST) WBC 6.2 4.8 - 10.8 K/mcL LAB HEMETOLOGY METHOD 11/18/2024 11:56 AM [facility] RBC 4.50 3.80 - 4.80 M/mcL LAB HEMETOLOGY METHOD 11/18/2024 11:56 AM [facility] Hemoglobin 13.7 11.5 - 16.0 g/dL LAB HEMETOLOGY METHOD 11/18/2024 11:56 AM [facility] Hematocrit 41.0 35.0 - 47.0 % LAB HEMETOLOGY METHOD 11/18/2024 11:56 AM [facility] MCV 91.5 79.0 - 98.0 FL LAB HEMETOLOGY METHOD 11/18/2024 11:56 AM [facility] MCH 30.6 27.0 - 32.0 pcg LAB HEMETOLOGY METHOD 11/18/2024 11:56 AM [facility] MCHC 33.4 32.0 - 37.0 g/dL LAB HEMETOLOGY METHOD 11/18/2024 11:56 AM [facility] RDW 13.8 11.0 - 15.0 % LAB HEMETOLOGY METHOD 11/18/2024 11:56 AM [facility] Platelets 238 130 - 400 K/mcL LAB HEMETOLOGY METHOD 11/18/2024 11:56 AM [facility] MPV 9.8 7.0 - 11.0 FL LAB HEMETOLOGY METHOD 11/18/2024 11:56 AM [facility] NRBC 0.0 <1.0 % LAB HEMETOLOGY METHOD 11/18/2024 11:56 AM [facility] NRBC Absolute 0.00 <0.10 K/mcL LAB HEMETOLOGY METHOD 11/18/2024 11:56 AM [facility] Neutrophils Relative 61.7 % LAB HEMETOLOGY METHOD 11/18/2024 11:56 AM [facility] Lymphocytes Relative 27.0 % LAB HEMETOLOGY METHOD 11/18/2024 11:56 AM [facility] Monocytes Relative 8.2 % LAB HEMETOLOGY METHOD 11/18/2024 11:56 AM [facility] Eosinophils Relative 2.2 % LAB HEMETOLOGY METHOD 11/18/2024 11:56 AM [facility] Basophils Relative 0.6 % LAB HEMETOLOGY METHOD 11/18/2024 11:56 AM [facility] Immature Granulocytes Relative 0.3 % LAB HEMETOLOGY METHOD 11/18/2024 11:56 AM [facility] Neutrophils Absolute 3.84 1.50 - 7.00 K/mcL LAB HEMETOLOGY METHOD 11/18/2024 11:56 AM [facility] Lymphocytes Absolute 1.68 1.00 - 5.00 K/mcL LAB HEMETOLOGY METHOD 11/18/2024 11:56 AM [facility] Monocytes Absolute 0.51 0.20 - 1.00 K/mcL LAB HEMETOLOGY METHOD 11/18/2024 11:56 AM [facility] Eosinophils Absolute 0.14 0.00 - 0.50 K/mcL LAB HEMETOLOGY METHOD 11/18/2024 11:56 AM [facility] Basophils Absolute 0.04 0.00 - 0.20 K/mcL LAB HEMETOLOGY METHOD 11/18/2024 11:56 AM [facility] Immature Granulocytes Absolute 0.02 0.00 - 0.03 K/mcL LAB HEMETOLOGY METHOD 11/18/2024 11:56 AM EST [facility] Blood Venous blood specimen / Unknown Venipuncture / Unknown 11/18/2024 10:51 AM EST 11/18/2024 10:51 AM EST Halima Mishra MD LAB BLOOD ORDERABLES Final Result Performing Organization Address City/[facility]/ZIP Co de Phone Number [facility] [address] [place] [address], [place] [phone] * Sedimentation rate (11/18/2024 10:51 AM EST) Pathologist [facility] Sed Rate 9 0 - 30 mm/hr LAB HEMETOLOGY METHOD 11/18/2024 12:12 PM EST [facility] Blood Venous blood specimen / Unknown Venipuncture / Unknown 11/18/2024 10:51 AM EST 11/18/2024 10:51 AM EST Halima Mishra MD LAB BLOOD ORDERABLES Final Result Performing Organization Address [facility] Co de Phone Number [facility] [address] [place] [address], [place] [phone] * C-reactive protein (11/18/2024 10:51 AM EST) C-Reactive Protein 0.30 <=0.50 mg/dL LAB CHEMISTRY METHOD 11/18/2024 3:58 PM EST [facility] Blood Venous blood specimen / Unknown Venipuncture / Unknown 11/18/2024 10:51 AM EST 11/18/2024 10:51 AM EST Halima Mishra MD LAB BLOOD ORDERABLES Final Result Performing Organization Address City/[facility]/ZIP Co de Phone Number [facility] [address] [place] [address], [place] [phone] * (ABNORMAL) Comprehensive metabolic panel (11/18/2024 10:51 AM EST) Sodium 139 133 - 145 mmol/L LAB CHEMISTRY METHOD 11/18/2024 3:58 PM [facility] Potassium 3.8 3.5 - 5.5 mmol/L LAB CHEMISTRY METHOD 11/18/2024 3:58 PM [facility] Chloride 104 96 - 110 mmol/L LAB CHEMISTRY METHOD 11/18/2024 3:58 PM [facility] CO2 31 21 - 32 mmol/L LAB CHEMISTRY METHOD 11/18/2024 3:58 PM [facility] Anion Gap 4 3 - 11 LAB CHEMISTRY METHOD 11/18/2024 3:58 PM [facility] Glucose 117(H) 70 - 100 mg/dL LAB CHEMISTRY METHOD 11/18/2024 3:58 PM [facility] BUN 19 5 - 25 mg/dL LAB CHEMISTRY METHOD 11/18/2024 3:58 PM [facility] Creatinine 0.86 0.50 - 1.10 mg/dL LAB CHEMISTRY METHOD 11/18/2024 3:58 PM [facility] eGFR 76 >=60 mL/min/1. 73m2 LAB CHEMISTRY METHOD 11/18/2024 3:58 PM [facility] Comment:Calculation based on the??Chronic Kidney Disease Epidemiology Collaboration (CKD-EPI) equation refit??without adjustment for race. BUN/Creatinine Ratio 22.1 LAB CHEMISTRY METHOD 11/18/2024 3:58 PM [facility] Calcium 9.0 8.5 - 10.5 mg/dL LAB CHEMISTRY METHOD 11/18/2024 3:58 PM [facility] AST (SGOT) 35 10 - 42 unit/L LAB CHEMISTRY METHOD 11/18/2024 3:58 PM [facility] ALT (SGPT) 42 10 - 60 unit/L LAB CHEMISTRY METHOD 11/18/2024 3:58 PM EST [facility] Alkaline Phosphatase 84 42 - 121 unit/L LAB CHEMISTRY METHOD 11/18/2024 3:58 PM [facility] Total Protein 6.6 6.0 - 8.0 g/dL LAB CHEMISTRY METHOD 11/18/2024 3:58 PM [facility] Albumin 3.7 3.2 - 5.0 g/dL LAB CHEMISTRY METHOD 11/18/2024 3:58 PM [facility] Total Bilirubin 0.5 0.0 - 1.4 mg/dL LAB CHEMISTRY METHOD 11/18/2024 3:58 PM [facility] Blood Venous blood specimen / Unknown Venipuncture / Unknown 11/18/2024 10:51 AM EST 11/18/2024 10:51 AM EST Halima Mishra MD LAB BLOOD ORDERABLES Final Result [facility] [address] [place] [address], * Colonoscopy (02/20/2024) [facility] Colonoscopy No Interpretation , Abstracted Anatomical Region Laterality Modality Other [facility] Provider HEALTH MAINTENANCE Final Result * (ABNORMAL) Lipid panel (02/12/2024) [facility] LDL/HDL Ratio 3 0 - 4 Triglycerides 163(A) 0 - 150 mg/dL Cholesterol 183 0 - 200 mg/dL HDL 63 >=40 mg/dL LDL Cholesterol 88 0 - 100 mg/dL Blood Venous blood specimen / Unknown Historical Kenyatta MORALES LAB BLOOD ORDERABLES Kristin l Result * Hepatitis C Screening (04/07/2013) [facility] Hepatitis C Screening Abstracted Historical Provider HEALTH MAINTENANCE Final Result from Last 3 Months or Most Recently Relevant to Health Maintenance Insurance [employer] Care Teams Surveillance Systems Engineer Relationship Specialty Start Date End Date Evelyne Rose MD [address] [place] [address] [place] [phone] PCP - General Internal Medicine 11/25/24
== END 2025-01-02 11:00 | disposition home or self-care (01) ==
PROVIDERS: PCP Internal Medicine
DX: M77.8 Other enthesopathies, not elsewhere classified (principal); M25.532 Pain in left wrist
CPT/HCPCS: 99213

== ENCOUNTER → 2025-01-02 10:21 | Outpatient (BNV) | payer OTHER, SELFPAY | PROVIDERS: Visit Provider Radiology Diagnostic Radiology | DX: M25.532 Pain in left wrist (principal) | CPT/HCPCS: 73110 ==

== ENCOUNTER 2025-03-11 10:34 | Outpatient (RCR) | payer OTHER, SELFPAY ==
--- NOTE | 2025-01-16 14:06 | MHC.OT.EP ---
[address] [phone] Occupational Therapy Plan of Care Patient Name: Mayte Darden Date of Evaluation: 01/16/25 Diagnosis: L DEQUERVAINS TENOSYNOVITIS Pain Location: 2/10 RADIAL WRIST, AT REST 5-6/10 WITH ROTATION MOVEMENTS Pain Score: 2-6/10 Pain Scale Used: Numeric (0 - 10) Aggravating Factors: ROTATIONAL MOVEMENTS OF WRIST Alleviating Factors: OCCASIONAL USE OF ICE; ORTHOSIS NOT HELPFUL Assessment: MS DARDEN REPORTS A ONE MONTH HISTORY OF L RADIAL THUMB PAIN, CONSISTENT WITH DeQUERVAINS TENOSYNOVITIS. SHE STATES IT MAY HAVE OCCURRED WHILE WORKING OUT WITH [employer] WORKER. A 32% LIMITATION IS REPORTED PER THE QUICK DASH ASSESSMENT. ONGOING SKILLED OT IS WARRANTED TO ADDRESS PAIN, ROM, STRENGTH AND SAFELY RETURN TO ADLs/IADLs. Frequency and Duration: The patient will be seen 3X/WEEK FOR 4 WEEKS Short Term Goals: IND HEP IND JOINT PROTECTION/ ACTIVITY MODIFICATION IND USE OF HEAT/COLD MODALITIES PAINFREE KAPANJI 07/08 [facility] Goals: L GROSS GRASP >40 POUNDS REPORT <3/10 PAIN WITH LIGHT IADLs AND LIFTING >10 POUNDS IND PROGRESSION OF HEP Treatment Plan: Therapeutic Exercise Therapeutic Activity Home Exercise Program Splinting Neuro Re-ed Patient Education Desensitization/Sensory Re-ed Edema Control ADL Training Ultrasound NMES Iontophoresis Paraffin Fluidotherapy MHP Cold Packs Joint Mobilization Soft Tissue Mobilization Kinesiotaping Other (see comments) Electronically Signed By: BERNICE MAGAÑA OTR/L Please Sign and return to therapist. Thank you once again for your referral.
--- NOTE | 2025-03-11 13:03 | MHC.OT.DC ---
[address] [phone] F: [phone] Occupational Therapy Discharge Note Patient Name: Mayte Darden Provider: Jose G Bhatti Diagnosis: L DEQUERVAINS TENOSYNOVITIS Date of Surgery: Date of Evaluation: 01/16/25 Date of Discharge: Treatments to Date: 13 Cancellations to Date: 0 No Shows to Date: 0 Discharge Status: Independent with HEP Discharge Summary: PT HAS MET HER GOALS AND IS OK TO BE D/CHARGED Electronically Signed By: BEN STEVENS OTR/L Reviewed/agree with student documentation: N/A Therapist: Please Sign and return to therapist, thank you for your referral.
== END 2025-03-11 13:02 | disposition home or self-care (01) ==
LOC: HO.OT 10:34
PROVIDERS: PCP Internal Medicine
DX: M77.8 Other enthesopathies, not elsewhere classified (principal)
CPT/HCPCS: 29130; 97033; 97035; 97110; 97140; 97166; 97760